=== PATIENT | female | born 1995 | race Caucasian/White ===

== ENCOUNTER → 2017-08-24 09:45 | Outpatient (CLI) | payer OTHER, SELFPAY ==
[2017-08-24 10:32] LABS: Hematocrit 32.8 % (37-47); Hemoglobin 10.8 g/dl (12.0-15.0); Mean Corp Hgb Conc 32.9 g/gl (32-36); Mean Corpuscular Hgb 31.7 pg (27.0-32.0); Mean Corpuscular Volume 96.2 fL (81-99); Mean Platelet Vol. 9.5 fl (6.2-12.0); Platelet Count 390 K/mm3 (150-450); RBC Distribution Width CV 12.5 % (11.6-14.6); RBC Distribution Width SD 42.4 fl (35.1-43.9); Red Blood Count 3.41 M/mm3 (4.2-5.4); White Blood Count 9.2 K/mm3 (4.4-11.0)
[2017-08-24 10:33] LABS: Scan Indicated on CBC? Y/N NO
[2017-08-24 10:49] LABS: Glucose Challenge Gest 1H 50g 82 mg/dL (70-140); T4 Free Direct 0.93 ng/dL (0.76-1.46); Thyroid Stim Hormone (TSH) 0.64 uIU/mL (0.358-3.74)
[2017-08-25 13:49] LABS: Ferritin 6 ng/mL (8-252)
== END ==
PROVIDERS: Visit Provider Obstetrics & Gynecology
DX: Z34.83 Encounter for supervision of other normal pregnancy, third trimester (principal); D64.9 Anemia, unspecified
CPT/HCPCS: 82728; 82950; 84439; 84443; 84481; 85027; 86850

== ENCOUNTER → 2017-10-20 13:45 | Outpatient (CLI) | payer OTHER, SELFPAY ==
[2017-10-20 17:57] LABS: Group B Strep DNA By PCR Negative (Negative); Internal Control PASS; Probe Check PASS; Specimen Processing Control PASS
== END ==
PROVIDERS: Visit Provider Obstetrics & Gynecology
DX: Z36.85 Encounter for antenatal screening for Streptococcus B (principal)
CPT/HCPCS: 87081; 87653

== ENCOUNTER → 2017-11-02 11:22 | Outpatient (CLI) | payer OTHER, SELFPAY ==
--- NOTE | 2017-11-02 11:22 | DT_ITS ---
This patient was seen during an EMR downtime October 26, 2017 - November 02, 2017. This patient may have a combination of paper and electronic documentation or all paper documentation. All documentation is viewable within the e-chart portion of [employer] for each patient visit.
[2017-11-02 11:48] LABS: ROM Internal Control Test YES-OK TO RESULT pt. (Internal QC)
[2017-11-02 11:50] LABS: ROM Patient Test Negative (Negative)
== END ==
PROVIDERS: Visit Provider Obstetrics & Gynecology
DX: Z34.83 Encounter for supervision of other normal pregnancy, third trimester (principal)
CPT/HCPCS: 84112

== ENCOUNTER 2017-11-05 01:10 | Inpatient (IN) | payer OTHER, SELFPAY ==
[2017-11-04 22:11] VITALS: BMI 29.5
[2017-11-05] MEDS: Lactated Ringers 1,000 ML 50 ML IV ×2 (01:28→07:45)
[2017-11-05 02:00] LABS: Hematocrit 31.5 % (37-47); Hemoglobin 10.1 g/dl (12.0-15.0); Mean Corp Hgb Conc 32.1 g/gl (32-36); Mean Corpuscular Hgb 28.1 pg (27.0-32.0); Mean Corpuscular Volume 87.7 fL (81-99); Mean Platelet Vol. 9.7 fl (6.2-12.0); Platelet Count 401 K/mm3 (150-450); RBC Distribution Width CV 13.2 % (11.6-14.6); RBC Distribution Width SD 42.6 fl (35.1-43.9); Red Blood Count 3.59 M/mm3 (4.2-5.4); Scan Indicated on CBC? Y/N NO; White Blood Count 15.7 K/mm3 (4.4-11.0)
[2017-11-05] MEDS: fentaNYL-bupivacaine (epidural) 100 ML BAG EPIDURAL (07:23)
--- NOTE | 2017-11-05 07:34 | PCM.PN.OB ---
Subjective: Just had epidural placed. Now more comfortable. Objective: Afeb VSS CAT 1 FHR tracing. Contractions q 5-6 minutes. - Physical Exam General: Alert, Oriented x3, Cooperative, No apparent distress Abdomen: Soft, Non Tender, Non-Distended, Gravid Skin: No rashes Neurological: Neuro grossly intact Psych/Mental Status: Normal Affect Comment: CE /-2 Weight: 194 lb 0.108 oz Body Mass Index (BMI) 29.5 Laboratory Tests Past 24 Hrs 11/05/17 11/05/17 11/05/17 01:28 01:28 01:28 WBC 15.7 H RBC 3.59 L Hgb 10.1 L Hct 31.5 L MCV 87.7 MCH 28.1 MCHC 32.1 RDW 13.2 RDW Differential 42.6 Plt Count 401 MPV 9.7 Blood Type A NEGATIVE Antibody Screen TNP NEGATIVE Medical Necessity - Tobacco Use Smoking Status: Never smoker Assessment/Plan Progressing in active labor with reassuring FHR pattern. AROM performed. eXPECT TO BE PUSHING SOON.
[2017-11-05] MEDS: Oxytocin 30 units/NS 500 ml 30 UNITS/500 ML IV.SOLN IV (09:42)
--- NOTE | 2017-11-05 10:38 | PCM.PN.BLA ---
Progress Note LABOR PROGRESS NOTE Renetta is without complaints and comfortable with the epidural. AVSS GEN - NAD, AAO x 3 SVE 8/90/-1 at approximately 0910h per RN exam TOCO 3/10 min, MVU 90 FHR 130, moderate variability, + accelerations, no decelerations A/P: 22 yo G1 @ 38 3/7wga in active labor with Cat I FHR, meconium stained fluid -Pitocin started following last exam for augmentation. Discussed with patient and at bedside indications for pitocin, reviewed role of IUPC and potential for FHR decelerations that may require change in management. -Will increase pitocin to 4mu/min -Continue in labor -Maternal and statuses reassuring
[2017-11-05] MEDS: Oxytocin 30 units/NS 500 ml 30 UNITS/500 ML IV.SOLN 334 UNITS IV (12:14)
[2017-11-05] MEDS: Oxytocin 30 units/NS 500 ml 30 UNITS/500 ML IV.SOLN 167 UNITS IV (12:45)
[2017-11-05] MEDS: 0.9% Saline Lock 10 ML Syringe IV (15:00)
--- NOTE | 2017-11-05 20:13 | OP.PCM_ITS ---
- Problem List (1) 38 weeks gestation of Status: Acute (2) (spontaneous vaginal delivery) Status: Acute Vaginal Delivery Maternal Presentation: Active Labor Method of Induction: - - pitocin augmentation Rupture of Membrane time: 72011/05/17 Amniotic Fluid Description: Lightly stained meconium Final JEFF: 11/16/17 Final JEFF Source: US <20 weeks Gestational age: 38 Weeks and 3 Days Date of Procedure: 11/05/17 Pre-Operative Diagnosis: 38 3/7wga, labor Post-Operative Diagnosis: 39 3/7wga, labor Surgery/ Procedure Performed: Spontaneous Vaginal Delivery Anesthesiologist: García Pereyra Type of Anesthesia: Epidural Description of Procedure: Patient was FD/+4 on my arrival and pushed to delivery a vigorous female . The infant was placed on the maternal abdomen and further attended by nursery personnel. The cord was doubly clamped and cut. Cord blood specimen was obtained. The placenta delivered spontaneously and appeared intact on inspection. A complex second degree perineal laceration with bilateral sulcal and left labial extension was repaired using 3-0 Vicryl Rapide. A right labial laceration was also present, but was shallow hemostatic thus not repaired. The tissue was extremely friable and each additional suture placement appeared to induce further bleeding, however, there was no hemorrhage. Once the anatomy was reapproximated I gently placed a slightly moistened packing Kerlex into the vagina. On placement of the packing however the right labial laceration began to bleed and it did not respond to suturing with 3-0 Vicryl, thus two Allis clamps were placed with hemostasis attained. Sponge counts were correct x 2 Will plan to remove Allis clamps later today and the vaginal packing tomorrow. Presentation: Vertex Placental Delivery Description: Spontaneous Placenta Disposition: [facility] Cord Vessel Description: 3 Vessels Nuchal Cord Compression: Without compression Cord Gases drawn per routine: ABG, VBG Cord Entanglement: None Drain: [place] to straight drain Estimated Blood Loss: 500 A gender: Female (1 minute): 8 (5 minute): 9 Episiotomy Description: None Laceration: Midline, Left Mediolateral, Right Mediolateral, Perineal Extension/ lac, Vaginal Extension/lac, 2nd degree Medications given after delivery: IV Pitocin Complications: None
[2017-11-05 23:08] VITALS: BP 119/56; PULSE 95; RESP 16; TEMP 36.8
[2017-11-06 00:46] VITALS: BP 110/65; PULSE 91; RESP 18; TEMP 36.6
[2017-11-06 04:29] VITALS: BP 106/55; PULSE 86; RESP 18; TEMP 36.4
[2017-11-06 06:37] LABS: Hematocrit 25.7 % (37-47); Hemoglobin 8.2 g/dl (12.0-15.0); Mean Corp Hgb Conc 31.9 g/gl (32-36); Mean Corpuscular Hgb 28.7 pg (27.0-32.0); Mean Corpuscular Volume 89.9 fL (81-99); Mean Platelet Vol. 9.5 fl (6.2-12.0); Platelet Count 353 K/mm3 (150-450); RBC Distribution Width CV 13.1 % (11.6-14.6); RBC Distribution Width SD 40.7 fl (35.1-43.9); Red Blood Count 2.86 M/mm3 (4.2-5.4)
[2017-11-06 06:39] LABS: Scan Indicated on CBC? Y/N NO
[2017-11-06 08:10] VITALS: BP 111/65; PULSE 96; RESP 16; TEMP 36.2
--- NOTE | 2017-11-06 09:15 | PCM.PN.OB ---
Patient Problems: Active and Suspected Problems 38 weeks gestation of (Acute) (spontaneous vaginal delivery) (Acute) Subjective: She is sore this morning, but out of bed and voids without difficulty. Infant latching well. Denies heavy lochia. Objective: avss - Physical Exam General: Alert, Oriented x3, Cooperative HEENT: Atraumatic, PERRLA, EOMI, Normocephalic Lungs: Normal air movement Cardiovascular: Regular rate, Regular Rhythm, Normal S1, Normal S2 Abdomen: Soft, Non Tender, Non-Distended, - - Fundus firm and nontender, vaginal packing removed, mild vulvar edema present Extremities: No edema, No Calf Tenderness Neurological: Neuro grossly intact Psych/Mental Status: Alert and oriented to time, place, person, mood and affect Vital Signs Temp Pulse Resp BP 98.4 F 98 16 108/56 L 11/06/17 10:59 11/06/17 10:59 11/06/17 10:59 11/06/17 10:59 Oxygen Delivery Method Room Air Weight: 88 kg Body Mass Index (BMI) 29.5 Intake and Output for Last 24 Hours 11/04/17 11/05/17 11/06/17 23:59 23:59 23:59 Intake Total 1747 / 1747 Output Total 2300 / 2300 Balance -553 / -553 Laboratory Tests Past 24 Hrs 11/05/17 11/06/17 16:00 06:15 WBC 17.0 H RBC 2.86 L Hgb 8.2 L Hct 25.7 L MCV 89.9 MCH 28.7 MCHC 31.9 L RDW 13.1 RDW Differential 40.7 Plt Count 353 MPV 9.5 Screen NEGATIVE Baby's Blood Type A POSITIVE Baby's SAROJ NEGATIVE Medical Necessity - Tobacco Use Smoking Status: Never smoker Assessment/Plan All Active Problems 38 weeks gestation of (Acute) (spontaneous vaginal delivery) (Acute) 22yo PPD#1 s/p doing well. - -Vaginal packing removed -H/H appropriate and c/w blood loss. Si/sx anemia reviewed. Plan for Fe supplementation at discharge -A neg, Rh positive - for Rhogam -Routine care
[2017-11-06] MEDS: Acetaminophen 500 MG Tablet 1000 MG PO (09:21)
--- NOTE | 2017-11-06 09:22 | NURSING ---
Packing removed this am by [email or web address]. no active bleeding at this time.
[2017-11-06 10:59] VITALS: BP 108/56; PULSE 98; RESP 16; TEMP 36.9
[2017-11-06 14:00] VITALS: BP 131/82; PULSE 111; RESP 16; TEMP 36.8; O2SAT 97
--- NOTE | 2017-11-06 14:11 | DCINST_ITS ---
Discharge Diet: No Restrictions Discharge Activity: Return to Normal Activity, May Shower, May Take a Tub Bath May resume sexual activity in: 6 weeks Lifting Restrictions: 20 lb Call your doctor if your incision/area has: Continuous Slow Oozing, Sudden Increased Bleeding, Increased Pain/ Swelling, Increased Redness, Foul Smelling Discharge Call your doctor if you observe: Fever of 101 or Higher, Inability to have a bowel movement, Using more than one pad per hour, Shortness of breath, Chest pain, Calf discomfort, Uncontrolled pain Suture Line Care: Avoid Pulling/Pushing Cleanse incision/area with: Soap & Water Additional Instructions: If you experience any of the following, contact your healthcare provider. * Bleeding that soaks a pad every hour for 2 hours * Fever 100.4 or higher * Unrelieved incision or abdominal pain * Swelling, redness, discharge or bleeding from your incision or episiotomy site * Your incision begins to separate * Problems urinating (including inability to urinate or burning while urinating) . * Visual changes * Severe headache * Flu-like symptoms * Pain or redness in one of both of your breasts * Pain, warmth, tenderness or swelling in your legs, especially the calf area * Frequent nausea and vomiting * Symptoms of depression or anxiety If you experience any of the following, call 911 or go to the nearest Emergency Room. * Chest pain * Problems breathing * Seizure activity * Partial or complete paralysis of a body part, slurred speech, weakness or drooping of the face, or a sudden inability to walk or hold your balance Allergies/Adverse Reactions: Allergies No Known Allergies Allergy (Verified 11/04/17 22:12) Medications to take at Discharge Vits [Prenatabs FA ] 1 tablet PO DAILY 11/04/17 Docusate Sodium [Colace] 100 mg PO BID PRN PRN #60 cap 11/06/17 Ferrous Sulfate 325 mg PO BIDCM #60 tab 11/06/17 Ibuprofen 600 mg PO TID PRN #30 tab 11/06/17 The following prescriptions were given: Docusate Sodium [Colace] 100 mg PO BID PRN PRN #60 cap PRN Reason: Constipation Ferrous Sulfate 325 mg PO BIDCM #60 tab Ibuprofen 600 mg PO TID PRN #30 tab PRN Reason: Pain Please Follow Up With: Tabitha Romero MD When: Call the office to schedule an appointment for 6 weeks
[2017-11-06 22:08] VITALS: BP 114/71; PULSE 96; RESP 16; TEMP 36.8; O2SAT 96
[2017-11-07 02:00] VITALS: BP 116/59; PULSE 90; RESP 16; TEMP 36.9; O2SAT 97
--- NOTE | 2017-11-07 07:58 | PCM.PN.OB ---
Patient Problems: Active and Suspected Problems 38 weeks gestation of (Acute) (spontaneous vaginal delivery) (Acute) Subjective: PPD#2 vaginal delivery. Doing well, no concerns voiced. - Physical Exam General: Oriented x3, Cooperative, No apparent distress HEENT: Atraumatic Neck: Supple Abdomen: Soft - Fundus firm NT at umbilicus. Peripad with mod lochia rubra Neurological: Cranial nerves II-XII grossly intact Psych/Mental Status: Normal Affect Vital Signs Temp Pulse Resp BP Pulse Ox 98.5 F 90 16 116/59 L 97 11/07/17 02:00 11/07/17 02:00 11/07/17 02:00 11/07/17 02:00 11/07/17 02:00 Oxygen Delivery Method Room Air Weight: 88 kg Body Mass Index (BMI) 29.5 Intake and Output for Last 24 Hours 11/05/17 11/06/17 11/07/17 23:59 23:59 23:59 Intake Total 1747 / 1747 Output Total 2300 / 2300 Balance -553 / -553 Medical Necessity - Tobacco Use Smoking Status: Never smoker Assessment/Plan All Active Problems 38 weeks gestation of (Acute) (spontaneous vaginal delivery) (Acute) PPD#2 Vaginal delivery. Dischg home today. RTO in 6 wk for pp check, prn sooner.
[2017-11-07 08:00] VITALS: BP 116/58; PULSE 86; RESP 16; TEMP 36.6; O2SAT 95
== END 2017-11-07 12:05 | disposition home or self-care (01) | DRG 775 ==
LOC: WPOUT 01:23
PROVIDERS: Obstetrics & Gynecology; Admitting Provider Obstetrics & Gynecology; Visit Provider Obstetrics & Gynecology
DX: O77.0 Labor and delivery complicated by meconium in amniotic fluid (principal); O70.1 Second degree perineal laceration during delivery; Z37.0 Single live birth; Z3A.38 38 weeks gestation of pregnancy
CPT/HCPCS: 59025; 59050; 85027; 85461; 86850; 86900; 90384; 99218; J7120; A4216; G0378; J2790

== ENCOUNTER → 2018-10-28 | Outpatient (CLI) | payer OTHER, SELFPAY ==
[2017-11-04 22:11] VITALS: BMI 29.5
[2018-11-02 13:26] LABS: HPV Reflexed? NOT INDICATED
== END | disposition home or self-care (01) ==
LOC: WOBLAB 14:41 → LABSPEC 14:41
PROVIDERS: Visit Provider Obstetrics & Gynecology
DX: Z12.4 Encounter for screening for malignant neoplasm of cervix (principal)
CPT/HCPCS: 88175; G0145

== ENCOUNTER → 2019-12-23 | Outpatient (CLI) | payer SELFPAY ==
[2017-11-04 22:11] VITALS: BMI 29.5
[2019-12-23 13:39] LABS: Color, Urine Yellow (Yellow); Glucose, Dipstick Normal (Normal); Ketone-Dipstick Negative (Negative); Leukocyte Esterase-Dipstick Negative /ul (Negative); Nitrite-Dipstick Negative (Negative); Occult Blood-Urine Negative /ul (Negative); Protein-Dipstick Negative (Negative); Urine Bilirubin Dipstick Negative (Negative); Urine Clarity Clear (Clear); Urine Urobilinogen Normal (Normal); Urine pH 6.5 (5.0 - 8.0)
[2019-12-23 13:40] LABS: Absolute Lymphocyte Count 2.13 X10^3/uL (0.83-4.51); Absolute Neutrophil Count 6.6 X10^3/uL (2.0-7.7); Basophil# 0.03 X10^3/uL; Basophil% 0.3 % (0-1); Eosinophil# 0.07 X10^3/uL; Eosinophils% 0.7 % (0-5); Hematocrit 41.8 % (37-47); Hemoglobin 13.5 g/dL (12.0-15.0); Lymphocyte # 2.13 X10^3/ul (4.0); Lymphocyte % 22.4 % (19-41); Mean Corp Hgb Conc 32.3 g/dL (32-36); Mean Corpuscular Hgb 30.5 pg (27.0-32.0); Mean Corpuscular Volume 94.4 fL (81-99); Mean Platelet Vol. 9.5 fl (6.2-12.0); Monocyte# 0.73 X10^3/uL; Monocyte% 7.7 % (0-10); NRBC Flagged by Analyzer 0 % (0-5); Neutrophil # 6.56 X10^3/uL (2.7-7.7); Neutrophil % 68.8 % (47-70); Platelet Count 365 K/mm3 (150-450); RBC Distribution Width SD 41.7 fl (35.1-43.9); Red Blood Count 4.43 M/mm3 (4.2-5.4); White Blood Count 9.5 K/mm3 (4.4-11.0)
[2019-12-23 14:00] LABS: Amphetamine Urine VISTA NEGATIVE (<1000 ng/mL); Barbiturate Urine VISTA NEGATIVE (< 200 ng/mL); Benzodiazepine Urine VISTA NEGATIVE (< 200 ng/mL); Cocaine Urine VISTA NEGATIVE (< 300 ng/mL); Ecstacy Urine VISTA NEGATIVE (< 500 ng/mL); Methadone Urine VISTA NEGATIVE (< 300 ng/mL); PCP Urine VISTA NEGATIVE (< 25 ng/mL); THC Urine VISTA NEGATIVE (< 50 ng/mL); Vista UDS pH Range 6
[2019-12-23 14:02] LABS: Thyroid Stim Hormone (TSH) 0.65 uIU/mL (0.358-3.74)
[2019-12-23 14:33] LABS: HIV - WCH Non-Reactive (Nonreactive); Hepatitis B Surface Antigen Non-Reactive (Nonreactive); Hepatitis C Antibody Non-Reactive (Nonreactive); Rubella IgG 87.6 IU/mL
[2019-12-23 19:36] LABS: Chlamydia Trachomatis by PCR Negative (Negative); Neisserai gonorrhoeae by PCR Negative (Negative); Probe Check PASS; Sample Adequacy Control PASS; Specimen Processing Control PASS
[2019-12-29 02:04] LABS: Prenatal RPR NONREACTIVE (NONREACTIVE)
== END | disposition home or self-care (01) ==
LOC: LABSPEC 13:23
PROVIDERS: Visit Provider Obstetrics & Gynecology
DX: Z34.81 Encounter for supervision of other normal pregnancy, first trimester (principal); Z11.3 Encounter for screening for infections with a predominantly sexual mode of transmission
CPT/HCPCS: 80307; 81002; 84443; 85025; 86703; 86762; 86803; 87340; 87491; 87591

== ENCOUNTER → 2020-05-22 09:07 | Outpatient (CLI) | payer SELFPAY ==
[2017-11-04 22:11] VITALS: BMI 29.5
[2020-05-22 10:42] LABS: Hematocrit 36.4 % (37-47); Hemoglobin 11.7 g/dL (12.0-15.0); Mean Corp Hgb Conc 32.1 g/dL (32-36); Mean Corpuscular Hgb 31.5 pg (27.0-32.0); Mean Corpuscular Volume 98.1 fL (81-99); Mean Platelet Vol. 9.8 fl (6.2-12.0); Platelet Count 337 K/mm3 (150-450); RBC Distribution Width SD 46.2 fl (35.1-43.9); Red Blood Count 3.71 M/mm3 (4.2-5.4); White Blood Count 9.7 K/mm3 (4.4-11.0)
[2020-05-22 10:46] LABS: Glucose Challenge Gest 1H 50g 101 mg/dL (70-140)
== END ==
PROVIDERS: Visit Provider Obstetrics & Gynecology
DX: Z34.83 Encounter for supervision of other normal pregnancy, third trimester (principal)
CPT/HCPCS: 36415; 82950; 85027; 86850

== ENCOUNTER → 2020-07-16 | Outpatient (CLI) | payer SELFPAY ==
[2017-11-04 22:11] VITALS: BMI 29.5
== END | disposition home or self-care (01) ==
LOC: LABSPEC 15:52
PROVIDERS: Visit Provider Obstetrics & Gynecology
DX: Z36.85 Encounter for antenatal screening for Streptococcus B (principal)
CPT/HCPCS: 87077; 87081; 87186

== ENCOUNTER 2020-08-03 07:00 | Inpatient (IN) | payer SELFPAY ==
[2017-11-04 22:11] VITALS: BMI 29.5
[2020-08-03] VITALS (52 sets, daily range): BP systolic 103–146; BP diastolic 56–86; PULSE 73–119; RESP 16; TEMP 36.3–37.4; O2SAT 94–99; BMI 30.7
[2020-08-03 07:49] LABS: Absolute Neutrophil Count 9.1 X10^3/uL (2.0-7.7); Basophil# 0.02 X10^3/uL; Basophil% 0.2 % (0-1); Eosinophils% 0.8 % (0-5); Hematocrit 34.6 % (37-47); Hemoglobin 11.8 g/dL (12.0-15.0); Lymphocyte % 17.1 % (19-41); Mean Corp Hgb Conc 34.1 g/dL (32-36); Mean Corpuscular Hgb 32.2 pg (27.0-32.0); Mean Corpuscular Volume 94.3 fL (81-99); Mean Platelet Vol. 9.8 fl (6.2-12.0); Monocyte# 0.87 X10^3/uL; Monocyte% 7.1 % (0-10); NRBC Flagged by Analyzer 0 % (0-5); Neutrophil # 9.13 X10^3/uL (2.7-7.7); Neutrophil % 74.3 % (47-70); Platelet Count 347 K/mm3 (150-450); RBC Distribution Width CV 12.7 % (11.6-14.6); RBC Distribution Width SD 43.9 fl (35.1-43.9); Red Blood Count 3.67 M/mm3 (4.2-5.4); White Blood Count 12.3 K/mm3 (4.4-11.0)
[2020-08-03] MEDS: Lactated Ringers 1,000 ML 50 ML IV (07:58)
[2020-08-03] MEDS: Oxytocin 30 units/NS 500 ml 30 UNITS/500 ML IV.SOLN IV (08:17)
--- NOTE | 2020-08-03 09:06 | HP.PCM_ITS ---
History and Physical Date of Admission: 08/03/20 OG ANTEPARTUM RECORD - HISTORY AND PHYSICAL (08/03/2020) Name: SHANNA CHESTER History of this : This is a 24 year old [id number] presents at 39 wks + 0 days gestation for induction. OB Physician: Maximiliano Givens MD 's Physician: Gretchen Zamarripa ...................................................................... : 1995 Age: 24 Address: [address] [place] [address] [address] [place] [address] Phone: (h) [phone] (O) [phone] Insurance Carrier: Emergency Contact: ELSIE SALEH [phone] ...................................................................... Final JEFF: 08/10/20 By Ultrasound: 12 weeks 4 days PARITY: (G-Total Pregnancies P-Fullterm,Premature,Induced AB,Spont AB, Ectopics, Multiple,Living) JEFF CONFIRMATION: By LMP: 11/04/19 Initial Exam: 08/10/20 By First Ultrasound Exam: 08/12/20 Final JEFF: 08/10/20 OB PROBLEM LIST: A NEG Declines carrier and Quad screen EPDS on 12/23/2019 = 0 SEX UNKNOWN ALLERGIES: No Known Allergies MEDICATIONS: aspirin 81 mg chewable tablet 1 PO QD 28 mg iron-800 mcg tablet 1 PO QD Vitamin D3 50 mcg (2,000 unit) capsule 1 PO QD SOCIAL HISTORY: Smoking - Never Alcohol Use - socially not while Diet - balanced Diet, caffeine < 2 drinks per day and water intake- 54 oz daily Lifestyle - Exercise - active 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 Illicit Drug Use - denies use of street drugs Sexual Activity - single sexual partner Residence - lives with Place of - [place], [place] Spouse-Sig Other Name - Xavier Chester Spouse-Sig Other Occupation - ice cream truck driver Spouse-Sig Other Phone No - [phone] Children Name(s) - Cassidy ('18) PRIOR DELIVERY HISTORY DEL DATE GEST LAB WT LB WT OZ TYPE ANES LABOR TX 14 Nov 09 38 14 8 1 Vag Epidural No ANTEPARTUM FLOW CHART VISIT GE RTC FU F F FL U U DATE WK MD WKS HT PN HR M SS BP ED WT FL GL D EF ST __ ____ ___ __ __ ___ __ __ __ ___ __ __ __ ___ __ 11 Jul 38 JMW 6 37 V + + 114/72 sl 198 - - 3 75 -2 03 Jul 37 JMW 1 37 V + + 130/82 sl 196 - - S 22 Feb 36 JMW 1 36 V + + 116/72 0 198 tr - 2 50 -2 09 Feb 34 SHM 1 34 V + + 110/62 0 194 tr - May SHM 2 33 V + + 116/66 0 193 tr - Jun 24 SHM 4 31 V + + 110/66 o 194 tr - May 21 SHM 2 29 ? + + 110/66 0 188 tr - 01 May 17 SHM 4 24 + + 120/66 0 185 - - 03 Apr 13 SHM 4 20 B + + 110/80 0 174 tr - 06 Mar 09 SHM 4 16 + ? 96/70 0 169 tr - 08 Feb 03 SHM 4 + US 110/74 0 161 tr - ANTEPARTUM NOTE(S): Aug 02 2020: Good FM and Induce per Request Jul 25 2020: Cramping, Witten Chau,Good FM Jul 16 2020: GBS and LARC Jul 03 2020: none Jun 22 2020: doing well Jun 08 2020: May 22 2020: 28 week labs, Rhogam Apr 24 2020: Mar 27 2020: feeling well. AM Feb 28 2020: feeling well. Jan 31 2020: feeling well. COMPREHENSIVE ANTEPARTUM NOTE(S): Jul 18 2020: H taken to OB. tkg Jul 16 2020: Shanna is here for a PNV. Good FM. No edema present. Denies any concerns/ issues. Occasional Miko Chau. Mucus discharge present. GBS today, consent signed. LARC reviewed and declined. MK Jul 03 2020: Few musculoskeletal discomforts. Pt notes theses are tolerable. No complaints. Reviewed GBS swab for next visit. Jun 22 2020: Has names for baby of each sex. Discussed COVID19 related L policies including visitation, request for maternal testing on admission and maternal masking policy. PTL, ROM, FM precautions. Jun 08 2020: Shanna is here for 31 wk PNV. Good FM. No edema. Medications and allergies reviewed. No concerns expressed at this time. LJW Jun 08 2020: Preeclampsia precautions reviewed. Has mild edema in LE at end of day, none today. Reviewed 1h GTT wnl and CBC wnl May 22 2020: Shanna is here for a PNV. Good FM. No edema. No concerns expressed at this time. 28 week labs drawn today. Rhogam to be given after as pt is A-. MK May 22 2020: Discussed PPBC, plans OCP. PTL, ROM, FM precautions. Apr 24 2020: Shanna is being seen for PNV, she is 24+4. Expressed + FM. No edema. She started taking Vit D 2000mg QD and aspirin 81 mg QD. Glucola given today to have drawn at next visit. No complaints or concerns expressed today. LJW Apr 24 2020: Previous labor 14-16h. She is considering no epidural this time. Reviewed average second labor is faster. Good movement. Discussed sleep positioning for third trimester . No questions or concerns today. Mar 27 2020: Anatomy scan reviewed, AGA, EFW 24th%, anterior placenta. SEX UNKNOWN, will wait until delivery. Occasional round ligament pain. Good FM. Feb 28 2020: Discussed movement, round ligement pain and musculoskeletal discomforts of . Anatomy scan next visit. Plans to wait to find out sex. Feb 01 2020: TELEHEALTH NOB VISIT, 25 TOTAL MINUTES. Shanna is a 24 year old with an JEFF of 08/10/2020, and current GA is 12 w 5 d. She states that she feels well, and has not experienced any N/V. She resides with her , Xavier, and their 2 year old daughter, Cassidy. Past history updated. Delivery at [facility] is planned, with a likely epidural, and she will breastfeed. Office practice patte Jan 31 2020: No complaints. Energy doing ok. Denies constipation. labs reviewed and wnl. A NEG. Discussed Rhogam indications. ?if is B NEG. Encouraged to bring copy of his [place] card - as Rhogam may not be indicated. Anatomy scan at 20wga REVIEW OF SYSTEMS: GENERAL - Denies fever, or chills SKIN - Denies rash, new skin lesions, or change in moles EYES - Denies blurred vision, or change in visual acuity EARS - Denies ear pain, or difficulty hearing NOSE - Denies nasal congestion, discharge, or bleeding MOUTH - Denies sore throat, or difficulty swallowing NECK - Denies pain or swelling RESPIRATORY - Denies shortness of breath, cough, wheezing CARDIOVASCULAR - Denies palpitations, chest pain, orthopnea, PND, peripheral edema, syncope or claudication GASTROINTESTINAL - Denies nausea, vomiting, diarrhea, constipation, Denies abdominal pain, melena and or bright red blood GENITOURINARY - Denies dysuria, frequency of urination, urgency, or hesitancy MUSCULOSKELETAL - Denies joint or muscle pain, or back pain NEUROLOGICAL - Denies localized numbness, weakness, or tingling PSYCHIATRIC - Denies depression, anxiety, substance abuse or suicide attempts ENDOCRINE - Denies heat or cold intolerance, weight loss or gain, increasing thirst HEMATO-IMMUNOLOGIC - Denies easy bruising, bleeding, oral ulcerations or recurrent infections GENETICS SCREENING: Age 35+ years: No Thalassemia: No Neural Tube Defect: No Down Syndrome: No KO-SACHS: No Sickle Cell Disease: No Hemophilia: No Musc. Dystrophy: No Cystic Fibrosis: No-declines screening [place]royo Chorea: No Mental Retardation: No Fragile X: No Other genetic: No Other defects: No SABs/still births: No Drugs since LMP: No INFECTION HISTORY: High risk AIDS: No High risk Hepatitis: No Exposed to TB: No Exposed to Herpes: No Rash/viral illness since LMP: No History of STD: No MENSTRUAL HISTORY: *Menses Amount/Duration: 3 daysMenses Regularity: RegularFrequency: monthlyMenarche (Age Onset): 12* PAST SUMMARY: PARITY: 1. Total Pregnancies............ 2 2. Full Term Pregnancies........ 1 3. Premature.................... 0 4. Abortions - Induced.......... 0 5. Abortions - Spontaneous...... 0 6. Ectopics..................... 0 7. Multiple Births.............. 0 8. Living Children.............. 1 PAST #1: Date of :.................. 11/05/17 Gestation Weeks:................ 38 Length of labor(hours):......... 14 Sex:............................ F Weight-lbs:............... 8 Weight-oz:................ 1 Type of Delivery:............... Vag Type of Anesthesia:............. Epidural Place of Delivery:.............. [facility] Treatment of Labor?:.... No Comment: PHYSICAL EXAMINATION General Appearence: 24 yo female in no acute distress Vital Signs: AF, VSS Heart: RRR without rubs or gallops Lungs: CTA x 2 Breasts: deferred Abdomen: gravid Pelvis: Cervix: 3/75 Presentation: cephalic Station: -2 Fetus: Size: AGA Movement: present Heart: present LAB TEST(S) ORDERED SINCE:11/14/19 05/22/2020 GLUCOSE CHALLENGE GEST 1H 50G 05/22/2020 CBC-COMPLETE BLOOD CNT NO DIFF 05/22/2020 ANTIBODY SCREEN 12/29/2019 RPR 12/23/2019 URINE DRUG SCREEN (VISTA) 12/23/2019 URINALYSIS, ROUTINE (DIPSTICK) 12/23/2019 THYROID STIM HORMONE (TSH) 12/23/2019 RUBELLA IGG 12/23/2019 T AND S-NO CHARGE W/PNP 12/23/2019 HIV - [facility] 12/23/2019 HEPATITIS C ANTIBODY 12/23/2019 HEPATITIS B SURFACE ANTIGEN 12/23/2019 CT/NG [facility] BY PCR 12/23/2019 CBC W/DIFF, AUTOMATED 08/03/2020 CBC W/DIFF, AUTOMATED 07/20/2020 CULTURE, GROUP B STREPTOCOCCUS 07/18/2020 RULE OUT BETA STREP (GRP. B) == ==== Order Observation Description Value Ref_Range A* Site == ==== CBC W/DIFF, AUT NOTE MONET CBC W/DIFF, AUT WBC 12.3 K/mm3 4.4-11.0 H ML CBC W/DIFF, AUT RBC 3.67 M/mm3 4.2-5.4 L ML CBC W/DIFF, AUT HGB 11.8 g/dL 12.0-15.0 L ML CBC W/DIFF, AUT HCT 34.6 37-47 L ML CBC W/DIFF, AUT MCV 94.3 fL 81-99 ML CBC W/DIFF, AUT MCH 32.2 pg 27.0-32.0 H ML CBC W/DIFF, AUT MCHC 34.1 g/dL 32-36 ML CBC W/DIFF, AUT RDW CV 12.7 11.6-14.6 ML CBC W/DIFF, AUT RDW SD 43.9 fl 35.1-43.9 ML CBC W/DIFF, AUT PLT 347 K/mm3 150-450 ML CBC W/DIFF, AUT MPV 9.8 fl 6.2-12.0 ML CBC W/DIFF, AUT NEUT% 74.3 47-70 H ML CBC W/DIFF, AUT LY% 17.1 19-41 L ML CBC W/DIFF, AUT MONO% 7.1 0-10 ML CBC W/DIFF, AUT EO% 0.8 0-5 ML CBC W/DIFF, AUT BASO% 0.2 0-1 ML CBC W/DIFF, AUT IG% 0.500 0.0-0.9 ML IG% - Immature Granulocytes (promyelocytes, myelocytes and metamyelocytes) > 1% indicates that a LEFT SHIFT is Present. CBC W/DIFF, AUT ABSOLUTE NEUT 9.1 X10 3/uL 2.0-7.7 H ML CBC W/DIFF, AUT ABSOLUTE LYMPH 2.10 X10 3/uL 0.83-4.51 ML CBC W/DIFF, AUT NUCLEATED RBC 0 0-5 ML CULTURE, GROUP NOTE MONET RULE OUT BETA S NOTE MONET [facility]~[address] [place], [phone] ANTIBODY SCREEN ANTIBODY SCREEN NEGATIVE N ML GLUCOSE CHALLEN NOTE MONET GLUCOSE CHALLEN GLU GEST 50G 1H 101 mg/dL 70-140 ML CBC-COMPLETE BL NOTE MONET CBC-COMPLETE BL WBC 9.7 K/mm3 4.4-11.0 ML CBC-COMPLETE BL RBC 3.71 M/mm3 4.2-5.4 L ML CBC-COMPLETE BL HGB 11.7 g/dL 12.0-15.0 L ML CBC-COMPLETE BL HCT 36.4 % 37-47 L ML CBC-COMPLETE BL MCV 98.1 fL 81-99 ML CBC-COMPLETE BL MCH 31.5 pg 27.0-32.0 ML CBC-COMPLETE BL MCHC 32.1 g/dL 32-36 ML CBC-COMPLETE BL RDW CV 13.0 % 11.6-14.6 ML CBC-COMPLETE BL RDW SD 46.2 fl 35.1-43.9 H ML CBC-COMPLETE BL PLT 337 K/mm3 150-450 ML CBC-COMPLETE BL MPV 9.8 fl 6.2-12.0 ML RPR NOTE MONET RPR RPR NONREACTIVE NONREACTIVE ML CT/NG [facility] BY PC NOTE MONET CT/NG [facility] BY PC CHLAM TRAC PCR Negative Negative ML CT/NG [facility] BY PC NG BY PCR Negative Negative ML Reason for Type AND Screen/Red Cells: Surgery? N [facility]~[address] [place], [address]~ T AND BLOOD TYPE GEL A NEGATIVE N ML T AND AB SCREEN GEL NEGATIVE N ML HEPATITIS C ANT NOTE MONET HEPATITIS C ANT HEPATITIS C AB Non-Reactive Nonreactive ML Non Reactive: < 0.8 Equivocal: >/= 0.8 to < 1.0 Reactive: >/= 1.0 The CDC recommends that a reactive/equivocal HCV antibody result be followed up by the HCV Nucleic Acid Amplification test ([id number]) HEPATITIS B RAMU NOTE MONET HEPATITIS B RAMU HEPB SURFACE AG Non-Reactive Nonreactive ML HIV - [facility] NOTE MONET HIV - [facility] HIV - [facility] Non-Reactive Nonreactive ML RUBELLA IGG NOTE MONET RUBELLA IGG RUBELLA IGG 87.6 IU/mL ML Antibody results Interpretation of Immune Status < 5 IU/ml Presumed Non-immune 5 - < 10 IU/ml Equivocal > or = 10 IU/ml Presumed Immune THYROID STIM HO NOTE MONET THYROID STIM HO TSH 0.65 uIU/mL 0.358-3.74 ML URINE DRUG SCRE NOTE MONET URINE DRUG SCRE TO BE CONFIRMED ML CONFIRMATORY TESTING FOR ALL POSITIVE URINE DRUG SCREEN RESULTS WILL ONLY BE SENT OUT UPON PHYSICIAN ORDER. VISTA Urine Drug Screen methods provide only preliminary analytical test results. A more specific alternate chemical method must be used in order to obtain a confirmed analytical result. Gas chromatography/mass spectrometery (GC/MS) is the preferred confirmatory method. Clinical consideration and professional judgement should be applied to any drug of abuse test result, particularly when preliminary positive results are used. URINE TCA TESTING MUST BE ORDERED SEPARATELY. USE TEST MNEMONIC: UTCA URINE DRUG SCRE VISTA UDS PH 6 ML URINE DRUG SCRE AMPHETAMINES NEGATIVE <1000 ng/mL ML URINE DRUG SCRE BARBITIURATES NEGATIVE < 200 ng/mL ML URINE DRUG SCRE BENZODIAZIPINE NEGATIVE < 200 ng/mL ML URINE DRUG SCRE COCAINE NEGATIVE < 300 ng/mL ML URINE DRUG SCRE ECSTACY NEGATIVE < 500 ng/mL ML URINE DRUG SCRE METHADONE NEGATIVE < 300 ng/mL ML URINE DRUG SCRE OPIATES NEGATIVE < 300 ng/mL ML URINE DRUG SCRE PCP NEGATIVE < 25 ng/mL ML URINE DRUG SCRE THC NEGATIVE < 50 ng/mL ML CBC W/DIFF, AUT NOTE MONET CBC W/DIFF, AUT WBC 9.5 K/mm3 4.4-11.0 ML CBC W/DIFF, AUT RBC 4.43 M/mm3 4.2-5.4 ML CBC W/DIFF, AUT HGB 13.5 g/dL 12.0-15.0 ML CBC W/DIFF, AUT HCT 41.8 % 37-47 ML CBC W/DIFF, AUT MCV 94.4 fL 81-99 ML CBC W/DIFF, AUT MCH 30.5 pg 27.0-32.0 ML CBC W/DIFF, AUT MCHC 32.3 g/dL 32-36 ML CBC W/DIFF, AUT RDW CV 12.0 % 11.6-14.6 ML CBC W/DIFF, AUT RDW SD 41.7 fl 35.1-43.9 ML CBC W/DIFF, AUT PLT 365 K/mm3 150-450 ML CBC W/DIFF, AUT MPV 9.5 fl 6.2-12.0 ML CBC W/DIFF, AUT NEUT% 68.8 % 47-70 ML CBC W/DIFF, AUT LY% 22.4 % 19-41 ML CBC W/DIFF, AUT MONO% 7.7 % 0-10 ML CBC W/DIFF, AUT EO% 0.7 % 0-5 ML CBC W/DIFF, AUT BASO% 0.3 % 0-1 ML CBC W/DIFF, AUT IM GRAN % 0.100 % 0.0-0.9 ML IG% - Immature Granulocytes (promyelocytes, myelocytes and metamyelocytes) > 1% indicates that a LEFT SHIFT is Present. CBC W/DIFF, AUT ABSOLUTE NEUT 6.6 X10 3/uL 2.0-7.7 ML CBC W/DIFF, AUT ABSOLUTE LYMPH 2.13 X10 3/uL 0.83-4.51 ML CBC W/DIFF, AUT NRBC, FLAGGED 0 % 0-5 ML URINALYSIS, ROU NOTE MONET URINALYSIS, ROU COLOR Yellow Yellow ML URINALYSIS, ROU CLARITY Clear Clear ML URINALYSIS, ROU GLUCOSE, UR Normal mg/dl Normal ML URINALYSIS, ROU BILIRUBIN URINE Negative mg/dL Negative ML URINALYSIS, ROU KETONE UR Negative mg/dl Negative ML URINALYSIS, ROU SP.GR. DIPSTX 1.010 1.002-1.030 ML URINALYSIS, ROU PH UR 6.5 5.0 - 8.0 ML URINALYSIS, ROU PROT DIPSTX Negative mg/dl Negative ML URINALYSIS, ROU UROBILI Normal mg/dl Normal ML URINALYSIS, ROU NITRITE UR Negative Negative ML URINALYSIS, ROU OCCULT BLOOD-UR Negative /ul Negative ML URINALYSIS, ROU LEUK ESTERASE Negative /ul Negative ML JIAN Culture ORGANISM 1: Streptococcus agalactiae (B) Amount Growth Growth Streptococcus agalactiae (B): REACTION Ampicillin $ <=0.25 S Benzylpenicillin NF 0.12 S Ceftriaxone $ <=0.12 S Clindamycin $$ <=0.25 S Inducable Clindamycin [place]istan NEG Linezolid $$$$ <=2 S Vancomycin $ 0.5 S Reference Range: S= Susceptible, I= Intermediate, R= Resistant MICS are expressed in micrograms per mL (NF) indicates non-formulary drug at [facility]. Approval by Infectious Disease Specialist required before non-formulary drugs may be ordered and/or dispensed. Testing performed on [employer] 2 instrument Sensitivity to follow. Streptococcus agalactiae (B) Amount Growth Growth == ==== Impression /Plan: 39 wks + 0 days intrauterine . Preparations in progress for delivery.
[2020-08-03] MEDS: Lactated Ringers 500 ML 999 ML IV ×2 (12:23→14:24)
[2020-08-03] MEDS: fentaNYL-bupivacaine (epidural) 100 ML BAG EPIDURAL (13:19)
[2020-08-03] MEDS: Oxytocin 30 units/NS 500 ml 30 UNITS/500 ML IV.SOLN 334 UNITS IV (15:05)
--- NOTE | 2020-08-03 15:18 | OP.PCM_ITS ---
Vaginal Delivery Maternal Presentation: Elective Induction Method of Induction: Amniotomy Amniotic Membrane Rupture Type: Artificial Amniotic Fluid Description: Clear Final JEFF: 08/10/20 Final JEFF Source: US <20 weeks Gestational age: 39 Weeks and 0 Days Date of Procedure: 08/03/20 Pre-Operative Diagnosis: IUP Post-Operative Diagnosis: IUP Surgery/ Procedure Performed: Spontaneous Vaginal Delivery Type of Anesthesia: Epidural Description of Procedure: Spontaneous vaginal delivery of a viable female infant with Apgars of 8/9 from an occiput anterior presentation with clear amniotic fluid and normal three- vessel placenta. Cord around the neck x1 tight. First-degree midline episiotomy extended to a second-degree midline laceration repaired with 3-0 Rapide suture under epidural. Sponges okay. Delivery physician: Maximiliano Givens MD. Presentation: Vertex Placental Delivery Description: Spontaneous Placenta Disposition: [facility] Cord Vessel Description: 3 Vessels Cord Entanglement: Around neck x 1, tight Estimated Blood Loss: 250 cc Infant A gender: Female (1 minute): 8 (5 minute): 9 Episiotomy Description: Midline, 1st degree Laceration: Midline, 2nd degree Medications given after delivery: IV Pitocin Complications: None
--- NOTE | 2020-08-03 15:21 | DCINST_ITS ---
<Maximiliano Givens - Last Filed: 08/03/20 15:21> Discharge Diet: No Restrictions Discharge Activity: May Shower, May Take a Tub Bath May resume sexual activity in: 4-6 weeks Additional Activity Instructions:: Nothing in the vagina for 4-6 weeks. You may return to work/school in 6 weeks. Call your doctor if you observe: Inability to urinate, Inability to have a bowel movement, Using more than one pad per hour Additional Instructions: If you experience any of the following, contact your healthcare provider. * Bleeding that soaks a pad every hour for 2 hours * Fever 100.4 or higher * Unrelieved incision or abdominal pain * Swelling, redness, discharge or bleeding from your incision or episiotomy site * Your incision begins to separate * Problems urinating (including inability to urinate or burning while urinating). * Visual changes * Severe headache * Flu-like symptoms * Pain or redness in one of both of your breasts * Pain, warmth, tenderness or swelling in your legs, especially the calf area * Frequent nausea and vomiting * Symptoms of depression or anxiety If you experience any of the following, call 911 or go to the nearest Emergency Room. * Chest pain * Problems breathing * Seizure activity * Partial or complete paralysis of a body part, slurred speech, weakness or drooping of the face, or a sudden inability to walk or hold your balance Allergies/Adverse Reactions: Allergies No Known Allergies Allergy (Verified 11/04/17 22:12) Medications to take at Discharge Vits [Prenatabs FA ] 1 tablet PO DAILY 11/04/17 Please Follow Up With: Maximiliano Givens MD - [phone] When: Call to make an appointment with your doctor in 6 weeks. Test Results: Test results from this visit will be discussed in further detail at your follow- up appointment, if applicable. <Marivel Dyer - Last Filed: 08/04/20 04:42> Additional Instructions: If you experience any of the following, contact your healthcare provider. * Bleeding that soaks a pad every hour for 2 hours * Fever 100.4 or higher * Unrelieved incision or abdominal pain * Swelling, redness, discharge or bleeding from your incision or episiotomy site * Your incision begins to separate * Problems urinating (including inability to urinate or burning while urinating). * Visual changes * Severe headache * Flu-like symptoms * Pain or redness in one of both of your breasts * Pain, warmth, tenderness or swelling in your legs, especially the calf area * Frequent nausea and vomiting * Symptoms of depression or anxiety If you experience any of the following, call 911 or go to the nearest Emergency Room. * Chest pain * Problems breathing * Seizure activity * Partial or complete paralysis of a body part, slurred speech, weakness or drooping of the face, or a sudden inability to walk or hold your balance Test Results: Test results from this visit will be discussed in further detail at your follow- up appointment, if applicable.
--- NOTE | 2020-08-03 15:21 | PCM.DCVAG ---
<Maximiliano Givens - Last Filed: 08/03/20 15:21> Discharge Diet: No Restrictions Discharge Activity: May Shower, May Take a Tub Bath May resume sexual activity in: 4-6 weeks Additional Activity Instructions:: Nothing in the vagina for 4-6 weeks. You may return to work/school in 6 weeks. Call your doctor if you observe: Inability to urinate, Inability to have a bowel movement, Using more than one pad per hour Additional Instructions: If you experience any of the following, contact your healthcare provider. Bleeding that soaks a pad every hour for 2 hours Fever 100.4 or higher Unrelieved incision or abdominal pain Swelling, redness, discharge or bleeding from your incision or episiotomy site Your incision begins to separate Problems urinating (including inability to urinate or burning while urinating). Visual changes Severe headache Flu-like symptoms Pain or redness in one of both of your breasts Pain, warmth, tenderness or swelling in your legs, especially the calf area Frequent nausea and vomiting Symptoms of depression or anxiety If you experience any of the following, call 911 or go to the nearest Emergency Room. Chest pain Problems breathing Seizure activity Partial or complete paralysis of a body part, slurred speech, weakness or drooping of the face, or a sudden inability to walk or hold your balance Allergies/Adverse Reactions: Allergies No Known Allergies Allergy (Verified 11/04/17 22:12) Medications to take at Discharge Vits [Prenatabs FA ] 1 tablet PO DAILY 11/04/17 Please Follow Up With: Maximiliano Givens MD - [phone] When: Call to make an appointment with your doctor in 6 weeks. Test Results: Test results from this visit will be discussed in further detail at your follow-up appointment, if applicable. <Marivel Dyre - Last Filed: 08/04/20 04:42> Additional Instructions: If you experience any of the following, contact your healthcare provider. Bleeding that soaks a pad every hour for 2 hours Fever 100.4 or higher Unrelieved incision or abdominal pain Swelling, redness, discharge or bleeding from your incision or episiotomy site Your incision begins to separate Problems urinating (including inability to urinate or burning while urinating). Visual changes Severe headache Flu-like symptoms Pain or redness in one of both of your breasts Pain, warmth, tenderness or swelling in your legs, especially the calf area Frequent nausea and vomiting Symptoms of depression or anxiety If you experience any of the following, call 911 or go to the nearest Emergency Room. Chest pain Problems breathing Seizure activity Partial or complete paralysis of a body part, slurred speech, weakness or drooping of the face, or a sudden inability to walk or hold your balance Test Results: Test results from this visit will be discussed in further detail at your follow-up appointment, if applicable.
[2020-08-04] VITALS (7 sets, daily range): BP systolic 113–118; BP diastolic 58–71; PULSE 76–92; RESP 16; TEMP 36.5–36.8
--- NOTE | 2020-08-04 04:41 | PCM.PN.OB ---
Subjective: PPD1. Lochia minimal. . - Physical Exam Vitals/I&O's: Vital Signs Temp Pulse Resp BP Pulse Ox 98.2 F 76 16 113/71 97 08/04/20 03:04 08/04/20 03:04 08/04/20 03:04 08/04/20 03:04 08/03/20 17:02 Weight: 89.176 kg Body Mass Index (BMI) 30.7 Intake and Output for Last 24 Hours 08/02/20 08/03/20 08/04/20 23:59 23:59 23:59 Intake Total 2347.57 / 2347.57 Output Total 200 / 200 Balance 2147.57 / 2147.57 General: Alert, Oriented x3, No apparent distress HEENT: Atraumatic, Normocephalic Neck: Supple Lungs: Normal air movement Cardiovascular: Regular rate Abdomen: Soft - uterus 2 cm below umbilicus Extremities: No edema Neurological: Cranial nerves II-XII grossly intact, Deep Tendon Reflexes 2+/4 and Symmetrical Psych/Mental Status: Normal Affect, Appropriate Microbiology Past 72 Hours 08/03/20 08:00 Mucosa - Nasopharyngeal SARS-CoV-2 Antigen (Rapid) - Final Laboratory Results 08/03/20 07:30: WBC 12.3 H, RBC 3.67 L, Hgb 11.8 L, Hct 34.6 L, MCV 94.3, MCH 32.2 H, MCHC 34.1, RDW Std Deviation 43.9, RDW Coeff of Shreyas 12.7, Plt Count 347, MPV 9.8, Immature Gran % (Auto) 0.500, Neut % (Auto) 74.3 H, Lymph % (Auto) 17.1 L, [place] % (Auto) 7.1, Eos % (Auto) 0.8, Baso % (Auto) 0.2, Absolute Neuts (auto) 9.1 H, Absolute Lymphs (auto) 2.10, Nucleated RBC % 0 08/03/20 07:30: Blood Type A NEGATIVE, Antibody Screen TNP 08/03/20 07:30: Antibody Screen NEGATIVE Current Medications Acetaminophen (Acetaminophen 500 Mg Tablet) 1,000 mg PO Q8H PRN PRN PRN Reason: Pain Score 1-3 Bisacodyl (Bisacodyl 10 Mg Suppository) 10 mg RC UD PRN PRN Reason: If no BM Dibucaine (Dibucaine 30 Gm Tube) 1 applic TOPICAL TID PRN PRN; Protocol PRN Reason: Discomfort Hydrocortisone (Hydrocortisone 2.5% Crm) 1 applic TOPICAL TID PRN PRN; Protocol PRN Reason: Discomfort Ibuprofen (Ibuprofen 600 Mg Tablet) 600 mg PO Q6H PRN PRN PRN Reason: Pain Score 1-3 Methylergonovine Maleate (Methylergonovine 0.2 Mg/Ml Ampul) 0.2 mg IM X1 PRN PRN Reason: Excess bleeding/uterine atony Ondansetron HCl (Ondansetron 4 Mg/2 Ml Vial) 4 mg IV Q4H PRN PRN PRN Reason: Nausea Oxycodone HCl (Oxycodone 5 Mg Tablet) 5 - 10 mg PO Q4H PRN PRN PRN Reason: Pain Score 4-10 Senna/Docusate Sodium (Senna/Docusate Sodium 1 Tablet) 1 - 2 tablet PO DAILY PRN PRN PRN Reason: Constipation Simethicone (Simethicone 80 Mg Tablet) 80 mg PO PCHS PRN PRN Reason: Indigestion/Stomach pain Sodium Chloride (0.9% Saline Lock 10 Ml Syringe) 5 - 15 ml IV UD PRN PRN Reason: SALINE FLUSH Zolpidem Tartrate (Zolpidem Tartrate 5 Mg Tablet) 5 mg PO QHS PRN PRN PRN Reason: Insomnia Medical Necessity - Tobacco Use Smoking Status: Never smoker Assessment/Plan All Active Problems 38 weeks gestation of (Acute) (spontaneous vaginal delivery) (Acute) PPD1 s/p . . Home today.
== END 2020-08-04 17:40 | disposition home or self-care (01) | DRG 807 ==
PROVIDERS: Admitting Provider Obstetrics & Gynecology; Visit Provider Obstetrics & Gynecology
DX: O69.1XX0 Labor and delivery complicated by cord around neck, with compression, not applicable or unspecified (principal); Z37.0 Single live birth; O70.1 Second degree perineal laceration during delivery; Z3A.39 39 weeks gestation of pregnancy
CPT/HCPCS: 59025; 59050; 85025; 86850; 86900; 86901; 87426; 99218; J7120; G0378

== ENCOUNTER → 2020-09-26 | Outpatient (CLI) | payer SELFPAY ==
[2020-08-03 07:28] VITALS: BMI 30.7
[2020-10-03 13:13] LABS: HPV Reflexed? NOT INDICATED
== END | disposition home or self-care (01) ==
LOC: LABSPEC 14:01
PROVIDERS: Visit Provider Obstetrics & Gynecology
DX: Z12.4 Encounter for screening for malignant neoplasm of cervix (principal)
CPT/HCPCS: 88175; G0145

== ENCOUNTER → 2023-01-01 | Outpatient (CLI) | payer OTHER, SELFPAY ==
[2023-01-05 06:06] LABS: Chlamydia By Nucleic Acid AMP Negative (Negative); Gonococcus By Nucleic Acid AMP Negative (Negative)
== END | disposition home or self-care (01) ==
PROVIDERS: Referring Provider Obstetrics & Gynecology; Visit Provider Obstetrics & Gynecology
DX: Z34.90 Encounter for supervision of normal pregnancy, unspecified, unspecified trimester (principal)
CPT/HCPCS: 87086; 87088; 87491; 87591

== ENCOUNTER → 2023-01-29 | Outpatient (CLI) | payer SELFPAY ==
[2023-01-29 11:50] LABS: Absolute Lymphocyte Count 2.61 X10^3/uL (0.83-4.51); Basophil# 0.03 X10^3/uL; Basophil% 0.3 % (0-1); Eosinophil# 0.33 X10^3/uL; Eosinophils% 2.8 % (0-5); Hematocrit 39.1 % (37-47); Lymphocyte # 2.61 X10^3/ul (0.83-4.51); Lymphocyte % 22.1 % (19-41); Mean Corp Hgb Conc 33.2 g/dL (32-36); Mean Corpuscular Volume 93.1 fL (81-99); Mean Platelet Vol. 8.9 fl (6.2-12.0); Monocyte# 0.76 X10^3/uL; Monocyte% 6.4 % (0-10); NRBC Flagged by Analyzer 0 % (0-5); Neutrophil # 8.04 X10^3/uL (2.7-7.7); Neutrophil % 68.1 % (47-70); Platelet Count 360 K/mm3 (150-450); RBC Distribution Width CV 12.7 % (11.6-14.6); RBC Distribution Width SD 43.8 fl (35.1-43.9); White Blood Count 11.8 K/mm3 (4.4-11.0)
[2023-01-29 12:58] LABS: HIV - WCH Non-Reactive (Nonreactive); Hepatitis B Surface Antigen Non-Reactive (Nonreactive); Hepatitis C Antibody Non-Reactive (Nonreactive); Rubella IgG Reactive (Nonreactive); Syphilis Antibodies Non-reactive
== END | disposition home or self-care (01) ==
LOC: PAVLAB 11:34
PROVIDERS: Referring Provider Obstetrics & Gynecology; Visit Provider Obstetrics & Gynecology
DX: Z34.90 Encounter for supervision of normal pregnancy, unspecified, unspecified trimester (principal)
CPT/HCPCS: 36415; 85025; 86703; 86762; 86780; 86803; 86850; 86900; 86901; 87340

== ENCOUNTER → 2023-03-27 | Outpatient (CLI) | payer SELFPAY ==
--- NOTE | 2023-03-27 13:18 | US_ITS ---
INDICATION: Anatomy. EXAMINATION: Ultrasound US OB Greater Than 14 Weeks TECHNIQUE: Transabdominal pelvic ultrasound was performed. COMPARISON: No relevant prior comparison study available LMP: 11/12/2022 Beta-hCG: Unknown. Provided EGA: None. FINDINGS: INTRAUTERINE GESTATION(s): Single. HEART MOTION is 143 bpm. BIOMETRIC MEASUREMENTS: HEAD CIRCUMFERENCE: 16.9 cm which corresponds to 19 weeks and 3 days. BIPARIETAL DIAMETER: 4.5 cm which corresponds to 19 weeks and 3 days. ABDOMINAL CIRCUMFERENCE: 14.3 cm which corresponds to 19 weeks and 5 days. FEMORAL LENGTH: 3.1 cm which corresponds to 19 weeks and 4 days. ESTIMATED DUE DATE (JEFF): 08/18/2023 ESTIMATED WEIGHT: 303 g +/- 45 g. PRESENTATION: Breech AMNIOTIC FLUID INDEX (RICHA): Appears to be within normal limits but not measured BIOPHYSICAL PROFILE (BPP): Not assessed. PLACENTA: Anterior. There is no placenta previa or abruption. 5.7 cm from the internal os. CERVIX: Cervix is closed measuring about 3.6 cm in length. MATERNAL OVARIES: Not seen. FREE FLUID: None. ANATOMY: LATERAL VENTRICLES: Visualized CHOROID PLEXUS: Visualized. MIDLINE FALX: Visualized. CAVUM SEPTUM PELLUCIDI: Visualized. CEREBELLUM: Visualized, 2 cm. CISTERNA MAGNA: Visualized, 6 mm. UPPER LIP: Appears to be intact. FOUR CHAMBER HEART VIEW: Unremarkable. LEFT VENTRICULAR OUTFLOW TRACT: Visualized. RIGHT VENTRICULAR OUTFLOW TRACT: Visualized. STOMACH: Visualized. KIDNEYS: Visualized, no hydronephrosis. URINARY BLADDER: Visualized. UMBILICAL CORD INSERTION into the abdomen: Unremarkable. UMBILICAL CORD vessel number: Normal three vessel cord. SPINE: Unremarkable. No posterior spinal defect observed. UPPER AND LOWER EXTREMITIES: Present. GENDER: Male. IMPRESSION: Single live intrauterine with an estimated gestational age of 19 weeks and 3 days. The JEFF is 08/18/2023. Electronically Signed: Paulo Guardado MD at 15:18 EDT , INDICATION: Anatomy. EXAMINATION: Ultrasound US OB Greater Than 14 Weeks TECHNIQUE: Transabdominal pelvic ultrasound was performed. COMPARISON: No relevant prior comparison study available LMP: 11/12/2022 Beta-hCG: Unknown. Provided EGA: None. FINDINGS: INTRAUTERINE GESTATION(s): Single. HEART MOTION is 143 bpm. BIOMETRIC MEASUREMENTS: HEAD CIRCUMFERENCE: 16.9 cm which corresponds to 19 weeks and 3 days. BIPARIETAL DIAMETER: 4.5 cm which corresponds to 19 weeks and 3 days. ABDOMINAL CIRCUMFERENCE: 14.3 cm which corresponds to 19 weeks and 5 days. FEMORAL LENGTH: 3.1 cm which corresponds to 19 weeks and 4 days. ESTIMATED DUE DATE (JEFF): 08/18/2023 ESTIMATED WEIGHT: 303 g +/- 45 g. PRESENTATION: Breech AMNIOTIC FLUID INDEX (RICHA): Appears to be within normal limits but not measured BIOPHYSICAL PROFILE (BPP): Not assessed. PLACENTA: Anterior. There is no placenta previa or abruption. 5.7 cm from the internal os. CERVIX: Cervix is closed measuring about 3.6 cm in length. MATERNAL OVARIES: Not seen. FREE FLUID: None. ANATOMY: LATERAL VENTRICLES: Visualized CHOROID PLEXUS: Visualized. MIDLINE FALX: Visualized. CAVUM SEPTUM PELLUCIDI: Visualized. CEREBELLUM: Visualized, 2 cm. CISTERNA MAGNA: Visualized, 6 mm. UPPER LIP: Appears to be intact. FOUR CHAMBER HEART VIEW: Unremarkable. LEFT VENTRICULAR OUTFLOW TRACT: Visualized. RIGHT VENTRICULAR OUTFLOW TRACT: Visualized. STOMACH: Visualized. KIDNEYS: Visualized, no hydronephrosis. URINARY BLADDER: Visualized. UMBILICAL CORD INSERTION into the abdomen: Unremarkable. UMBILICAL CORD vessel number: Normal three vessel cord. SPINE: Unremarkable. No posterior spinal defect observed. UPPER AND LOWER EXTREMITIES: Present. GENDER: Male. US/OB Anatomy w/ Transvaginal
== END | disposition home or self-care (01) ==
PROVIDERS: Referring Provider Advanced Practice Midwife; Visit Provider Advanced Practice Midwife
DX: O09.90 Supervision of high risk pregnancy, unspecified, unspecified trimester (principal); Z3A.00 Weeks of gestation of pregnancy not specified
CPT/HCPCS: 76805; 76817

== ENCOUNTER → 2023-05-29 | Outpatient (CLI) | payer SELFPAY ==
[2023-05-29 14:05] LABS: Absolute Lymphocyte Count 1.94 X10^3/uL (0.83-4.51); Absolute Neutrophil Count 8.6 X10^3/uL (2.0-7.7); Basophil# 0.03 X10^3/uL; Basophil% 0.3 % (0-1); Eosinophil# 0.17 X10^3/uL; Eosinophils% 1.5 % (0-5); Hematocrit 31.9 % (37-47); Hemoglobin 10.7 g/dL (12.0-15.0); Lymphocyte # 1.94 X10^3/ul (0.83-4.51); Lymphocyte % 16.6 % (19-41); Mean Corp Hgb Conc 33.5 g/dL (32-36); Mean Corpuscular Hgb 31.1 pg (27.0-32.0); Mean Corpuscular Volume 92.7 fL (81-99); Mean Platelet Vol. 9.2 fl (6.2-12.0); Monocyte# 0.93 X10^3/uL; NRBC Flagged by Analyzer 0 % (0-5); Neutrophil # 8.55 X10^3/uL (2.7-7.7); Neutrophil % 73.3 % (47-70); Platelet Count 383 K/mm3 (150-450); RBC Distribution Width CV 12.5 % (11.6-14.6); RBC Distribution Width SD 42.5 fl (35.1-43.9); Red Blood Count 3.44 M/mm3 (4.2-5.4); White Blood Count 11.7 K/mm3 (4.4-11.0)
[2023-05-29 14:55] LABS: Glucose Challenge Gest 1H 50g 111 mg/dL (70-140)
[2023-05-29 15:30] LABS: HIV - WCH Non-Reactive (Nonreactive); Syphilis Antibodies Non-reactive
== END | disposition home or self-care (01) ==
LOC: LAB 13:37
PROVIDERS: Referring Provider Registered Nurse; Visit Provider Registered Nurse
DX: O26.899 Other specified pregnancy related conditions, unspecified trimester (principal); Z67.91 Unspecified blood type, Rh negative; Z13.1 Encounter for screening for diabetes mellitus; Z3A.00 Weeks of gestation of pregnancy not specified
CPT/HCPCS: 36415; 82950; 85025; 86703; 86780; 86850; 86900; 86901

== ENCOUNTER → 2023-06-30 | Outpatient (CLI) | payer SELFPAY ==
[2023-06-30 10:08] LABS: Absolute Lymphocyte Count 1.74 X10^3/uL (0.83-4.51); Absolute Neutrophil Count 7.1 X10^3/uL (2.0-7.7); Basophil# 0.02 X10^3/uL; Basophil% 0.2 % (0-1); Eosinophil# 0.12 X10^3/uL; Eosinophils% 1.2 % (0-5); Hematocrit 33.5 % (37-47); Hemoglobin 10.7 g/dL (12.0-15.0); Lymphocyte # 1.74 X10^3/ul (0.83-4.51); Lymphocyte % 17.6 % (19-41); Mean Corp Hgb Conc 31.9 g/dL (32-36); Mean Corpuscular Hgb 30.3 pg (27.0-32.0); Mean Corpuscular Volume 94.9 fL (81-99); Mean Platelet Vol. 9.3 fl (6.2-12.0); Monocyte# 0.78 X10^3/uL; Monocyte% 7.9 % (0-10); NRBC Flagged by Analyzer 0 % (0-5); Neutrophil # 7.14 X10^3/uL (2.7-7.7); Neutrophil % 72.5 % (47-70); Platelet Count 347 K/mm3 (150-450); RBC Distribution Width CV 12.8 % (11.6-14.6); Red Blood Count 3.53 M/mm3 (4.2-5.4); White Blood Count 9.9 K/mm3 (4.4-11.0)
== END | disposition home or self-care (01) ==
PROVIDERS: Referring Provider Registered Nurse; Visit Provider Registered Nurse
DX: D64.9 Anemia, unspecified (principal)
CPT/HCPCS: 36415; 85025

== ENCOUNTER → 2023-07-22 | Outpatient (CLI) | payer SELFPAY | END | disposition home or self-care (01) | LOC: LABSPEC 15:28 | PROVIDERS: Referring Provider Obstetrics & Gynecology; Visit Provider Obstetrics & Gynecology | DX: O09.90 Supervision of high risk pregnancy, unspecified, unspecified trimester (principal); Z3A.00 Weeks of gestation of pregnancy not specified | CPT/HCPCS: 87081 ==

== ENCOUNTER 2023-08-24 17:01 | Inpatient (IN) | payer SELFPAY ==
[2023-08-24] VITALS (44 sets, daily range): BP systolic 112–146; BP diastolic 57–84; PULSE 83–121; RESP 16–18; TEMP 36.3–37; O2SAT 92–100; BMI 32.6
[2023-08-24] MEDS: LACTATED RINGERS 500 ML 999 ML IV (17:15)
[2023-08-24] MEDS: Lactated Ringers 1,000 ML 200 ML IV (17:15)
[2023-08-24 17:38] LABS: Absolute Lymphocyte Count 2.45 X10^3/uL (0.83-4.51); Absolute Neutrophil Count 14.2 X10^3/uL (2.0-7.7); Basophil# 0.03 X10^3/uL; Basophil% 0.2 % (0-1); Eosinophil# 0.06 X10^3/uL; Eosinophils% 0.3 % (0-5); Hematocrit 35.8 % (37-47); Hemoglobin 11.6 g/dL (12.0-15.0); Lymphocyte # 2.45 X10^3/ul (0.83-4.51); Lymphocyte % 13.1 % (19-41); Mean Corp Hgb Conc 32.4 g/dL (32-36); Mean Corpuscular Hgb 27.7 pg (27.0-32.0); Mean Corpuscular Volume 85.4 fL (81-99); Monocyte# 1.82 X10^3/uL; Monocyte% 9.8 % (0-10); NRBC Flagged by Analyzer 0 % (0-5); Neutrophil # 14.24 X10^3/uL (2.7-7.7); Neutrophil % 76.3 % (47-70); POSITIVE DIFFERENTIAL YES; Platelet Count 348 K/mm3 (150-450); RBC Distribution Width CV 13.6 % (11.6-14.6); RBC Distribution Width SD 42.4 fl (35.1-43.9); Red Blood Count 4.19 M/mm3 (4.2-5.4); White Blood Count 18.7 K/mm3 (4.4-11.0)
[2023-08-24 17:41] LABS: Differential Indicated SCAN CRITERIA MET
[2023-08-24] MEDS: fentaNYL-bupivacaine (epidural) 100 ML BAG EPIDURAL (17:51)
[2023-08-24 18:09] LABS: Syphilis Antibodies Non-reactive
[2023-08-24 18:28] LABS: Differential Comment SCANNED
[2023-08-24] MEDS: Oxytocin 15 Units/NS 250ml 15 UNITS/250 ML IV.SOLN 83 UNITS IV (18:50)
[2023-08-24] MEDS: Methylergonovine 0.2 MG/ML Ampul IM (18:52)
--- NOTE | 2023-08-24 19:31 | HP.PCM.OB_ITS ---
HPI - General General Date of Admission: 08/24/23 HPI Narrative SHANNA WHITEHEAD, is a 27 F who presents at 40.6 with strong contractions, declines dec fm, vb. desires epidural upon admission. gbs neg Maternal Data Information JEFF Calculator Estimated Delivery Date Method Current WG Current Estimate 08/19/23 Ultrasound #1 40w 5d Other Estimates 08/14/23 LMP (Certain) 41w 3d PFSH PFSH Medical History 38 weeks gestation of (spontaneous vaginal delivery) Home Medications vits,calcium no.78-iron fumarate-folic acid 29 mg-1 mg tablet (Prenatabs FA) 1 tab PO DAILY 11/04/17 [History Last Taken 08/03/20 06:00] Allergy/AdvReac Type Severity Reaction Status Date / Time No Known Allergies Allergy Verified 08/24/23 18:29 Family History Father Hypertension Mother Hypertension Social History adopted: No household members: spouse and children number of children: 2 current occupational status: unemployed current occupation: Homemaker current occupational exposures/hazards: No pets and animals: No history of recent travel: Yes (October) out of state: Yes out of country: No sexually active: Yes Smoking Status: Never smoker alcohol intake: current alcohol intake frequency: holidays/special occasions only details: Not while substance use type: does not use well-balanced diet: daily or most days caffeine: Yes Type: coffee Number of servings: 1 eating out: 1-3 times/week during the past year weight has: remained stable kiara/gnosticist: Religious seatbelt use: always do you feel safe at home: Yes 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 Date Name GA/Weeks Outcome Route Bth Weight Infant Gen Labor Lgth Anesthesia Del Locatn Provider FOB 11/05/17 Jossie 38 live - full term 8#1oz Female 16 Hrs epi dural [facility] Dr. [place] 08/03/20 Wrenly 39 live - full term 7#6oz Female 7 Hrs epid ural [facility] Dr.Weeman Park Visit Details Expected Delivery Route/Plan Labor Preferences- CB/BF classes: enc. labor support person: Xavier labor intervention preferences: [] pain management options preferred: [] cut cord/dad catch: [] : plans PP control planned: [] discussed possible routes of delivery and associated risks: [] special requests: [] Plans Covid status: declines Flu vaccine: declines Tdap vaccine: declines Rhogam: completed. LARC form signed: completed. Problem list reviewed and updated with the most current plan of care details and appropriate orders placed. Relevant counseling for the gestational age provided. Continue routine care and follow up unless otherwise noted in visit notes/problem list details OB Flowsheet Initial Weight: 164 lb Date -?-?-?-?-?-?-?-?-?-?-?-?- EGA Weight BP Urine Prot -?-?-?-?-?-?-?-?-?-?-?-?- Glucose FHR FuHt Pres Dilation -?-?-?-?-?-?-?-?-?-?-?-?- Effaced St Visit Note 01/01/23 -?-?-?-?-?-?-?-?-?-?-?-?- 7w 1d 164 lb 8 oz (+8 oz) 164 lb 8 oz (+8 oz) 124/78 -?-?-?-?-?-?-?-?-?-?-?-?- 170 -?-?-?-?-?-?-?-?-?-?-?-?- SM- CRL cons wit h LMP SM- CRL 1 cm NOT cons with L MP 01/29/23 -?-?-?-?-?-?-?-?-?-?-?-?- 11w 1d 168 lb 2 oz (+4 lb 2 oz) 120/84 Negative -?-?-?-?-?-?-?-?-?-?-?-?- Negative -?-?-?-?-?-?-?-?-?-?-?-?- KW-no vb/crampin g. no concerns today. FHR on bedside US today KW-no vb/cramping. no concer ns today. FHR on bedside US today. US ordered and AFP discussed-Declines at this time. 02/26/23 -?-?-?-?-?-?-?-?-?-?-?-?- 15w 1d 174 lb 2 oz (+10 lb 2 oz) 118/76 -?-?-?-?-?-?-?-?-?-?-?-?- 150 -?-?-?-?-?-?-?-?-?-?-?-?- LC- no vb/crampi ng. no concerns. has anatomy scheduled. 03/26/23 -?-?-?-?-?-?-?-?-?-?-?-?- 19w 1d 181 lb 4 oz (+17 lb 4 oz) 100/62 Negative -?-?-?-?-?-?-?-?-?-?-?-?- Negative 150 -?-?-?-?-?-?-?-?-?-?-?-?- kw- no vb/ctx. + flutters. US tomorrow. 04/23/23 -?-?-?-?-?-?-?-?-?-?-?-?- 23w 1d 187 lb 6 oz (+23 lb 6 oz) 103/70 Trace -?-?-?-?-?-?-?-?-?-?-?-?- Negative 148 23 -?-?-?-?-?-?-?-?-?-?-?-?- LC- no vb/ctx/lo f. +fm. normal anatomy. 28 week labs ordered. 05/29/23 -?-?-?-?-?-?-?-?-?-?-?-?- 28w 2d 199 lb (+35 lb) 126/78 Negative -?-?-?-?-?-?-?-?-?-?-?-?- Negative 145 28 -?-?-?-?-?-?-?-?-?-?-?-?- LC- no vb/ctx/lo f. good fm. hgb 10.7- start on iron repeat in 4 weeks. LC- no vb/ctx/lof. good fm. hgb 10.7- start on iron repeat in 4 weeks. larc signed. declines tdap. rhogam provided. 06/11/23 -?-?-?-?-?-?-?-?-?-?-?-?- 30w 1d 201 lb 8 oz (+37 lb 8 oz) 107/74 Trace -?-?-?-?-?-?-?-?-?-?-?-?- Negative 148 30 -?-?-?-?-?-?-?-?-?-?-?-?- LC- no vbc/ctx/l of. good fm. declines flu vaccine 06/25/23 -?-?-?-?-?-?-?--?-?-?-?-?- 32w 1d 206 lb 8 oz (+42 lb 8 oz) 117/77 Negative -?-?-?-?-?-?-?-?-?-?-?-?- Negative 156 32 -?-?-?-?-?-?-?-?-?-?-?-?- LC- no vb/ctx/lo f.good fm.will obtain repeat cbc. 07/08/23 -?-?-?-?-?-?-?-?-?-?-?-?- 34w 0d 206 lb (+42 lb) 119/74 Trace -?-?-?-?-?-?-?-?-?-?-?-?- Negative 148 34 -?-?-?-?-?-?-?-?-?-?-?-?- MH-No VB, LOF. G ood Fm. Denies concerns 07/22/23 -?-?-?-?-?-?-?-?-?-?-?-?- 36w 0d 209 lb (+45 lb) 126/80 Negative -?-?-?-?-?-?-?-?-?-?-?-?- Negative 153 36 Cephalic 1 -?-?-?-?-?-?-?-?-?-?-?-?- 30 -3 JV- gbs co llected no lof, vaginal bleeding, or dec fm. 07/29/23 -?-?-?-?-?-?-?-?-?-?-?-?- 37w 0d 211 lb 6 oz (+47 lb 6 oz) 124/63 Negative -?-?-?-?-?-?-?-?-?-?-?-?- Negative 156 38 Cephalic 0 -?-?-?-?-?-?-?-?-?-?-?-?- JV- better able to feel internal os today and it is closed. no lof, vaginal bleeding, or dec fm. 08/06/23 -?-?-?-?-?-?-?-?-?-?-?-?- 38w 1d 212 lb (+48 lb) 129/83 Negative -?-?-?-?-?-?-?-?-?-?-?-?- Negative 150 39 1.5 -?-?-?-?-?-?-?-?-?-?-?-?- 60 -2 SM- no vb lof good fm no regualr ctx 08/13/23 -?-?-?-?-?-?-?-?-?-?-?-?- 39w 1d 214 lb 8 oz (+50 lb 8 oz) 121/79 Negative -?-?-?-?-?-?-?-?-?-?-?-?- Negative 150 40 Cephalic 3 -?-?-?-?-?-?-?-?-?-?-?-?- 60 -2 kw- no vb/ lof/reg ctx. good fm. Labor precautions 08/19/23 -?-?-?-?-?-?-?-?-?-?-?-?- 40w 0d 215 lb 4 oz (+51 lb 4 oz) 118/81 Negative -?-?-?-?-?-?-?-?-?-?-?-?- Negative 150 41 Cephalic 4 -?-?-?-?-?-?-?-?-?-?-?-?- 60 -2 KW- no vb/ lof/ctx. good fm. IOL for 41 weeks. membrane sweep today. Vital Signs Vital Signs Vital Signs: 08/24/23 17:05 08/24/23 17:05 08/24/23 17:04 Temperature Temperature Source Temporal Pulse Rate 98 Respiratory Rate Blood Pressure 124/76 H BP Systolic 124 BP Diastolic 76 Pulse Ox 08/24/23 17:04 08/24/23 17:04 08/24/23 17:42 Temperature 98.6 F Temperature Source Pulse Rate Respiratory Rate 16 Blood Pressure 138/81 H BP Systolic 138 BP Diastolic 81 Pulse Ox 08/24/23 17:42 08/24/23 17:42 08/24/23 17:46 Temperature Temperature Source Pulse Rate 100 Respiratory Rate Blood Pressure 136/82 H BP Systolic 136 BP Diastolic 82 Pulse Ox 98 08/24/23 17:46 08/24/23 17:47 08/24/23 17:47 Temperature Temperature Source Pulse Rate 98 105 H Respiratory Rate Blood Pressure BP Systolic BP Diastolic Pulse Ox 92 08/24/23 17:52 08/24/23 17:52 08/24/23 17:53 Temperature Temperature Source Pulse Rate 98 Respiratory Rate Blood Pressure 129/79 H BP Systolic 129 BP Diastolic 79 Pulse Ox 97 08/24/23 17:53 08/24/23 17:55 08/24/23 17:55 Temperature Temperature Source Pulse Rate 95 93 Respiratory Rate Blood Pressure BP Systolic BP Diastolic Pulse Ox 92 08/24/23 17:57 08/24/23 17:57 08/24/23 17:57 Temperature Temperature Source Pulse Rate 103 H Respiratory Rate Blood Pressure 121/77 H BP Systolic 121 BP Diastolic 77 Pulse Ox 99 08/24/23 18:00 08/24/23 18:00 08/24/23 18:02 Temperature Temperature Source Pulse Rate 98 Respiratory Rate Blood Pressure 134/78 H BP Systolic 134 BP Diastolic 78 Pulse Ox 92 08/24/23 18:02 08/24/23 18:02 08/24/23 18:02 Temperature Temperature Source Pulse Rate 96 100 Respiratory Rate Blood Pressure BP Systolic BP Diastolic Pulse Ox 98 08/24/23 18:07 08/24/23 18:07 08/24/23 18:07 Temperature Temperature Source Pulse Rate 110 H Respiratory Rate Blood Pressure 136/64 H BP Systolic 136 BP Diastolic 64 Pulse Ox 96 08/24/23 18:11 08/24/23 18:12 08/24/23 18:11 Temperature Temperature Source Pulse Rate 110 H 104 H Respiratory Rate Blood Pressure 123/57 H BP Systolic 123 BP Diastolic 57 Pulse Ox 08/24/23 18:12 08/24/23 18:17 08/24/23 18:17 Temperature Temperature Source Pulse Rate 106 H Respiratory Rate Blood Pressure BP Systolic BP Diastolic Pulse Ox 96 100 08/24/23 18:18 08/24/23 18:18 08/24/23 18:23 Temperature Temperature Source Pulse Rate 112 H Respiratory Rate Blood Pressure 140/83 H 143/65 H BP Systolic 140 143 BP Diastolic 83 65 Pulse Ox 08/24/23 18:23 08/24/23 18:27 08/24/23 18:27 Temperature Temperature Source Pulse Rate 121 H 116 H Respiratory Rate Blood Pressure 127/69 H BP Systolic 127 BP Diastolic 69 Pulse Ox 08/24/23 19:07 08/24/23 19:07 08/24/23 19:17 Temperature Temperature Source Pulse Rate 94 Respiratory Rate Blood Pressure 122/71 H 116/69 BP Systolic 122 116 BP Diastolic 71 69 Pulse Ox 08/24/23 19:17 Temperature Temperature Source Pulse Rate 96 Respiratory Rate Blood Pressure BP Systolic BP Diastolic Pulse Ox Weight Weight: 215 lb Body Mass Index (BMI) 32.6 Physical Exam Const alert, oriented x3 and no apparent distress General Appearance: cooperative, comfortable and well kempt Orientation / Consciousness: awake and oriented to person Exam Limitations: no limitations HEENT normocephalic Neck full ROM Chest inspection of chest normal Resp normal respiratory effort, normal air movement and no retractions Effort and Inspection: able to speak in complete sentences and symmetric chest movement Cardio regular rate Peripheral Pulses: pulses 2+ throughout GI normal to inspection, nondistended, normoactive bowel sounds Inspection: gravid no CVA tenderness and appearance of the vagina normal External Female Exam: normal appearance of the urethra; Negative for external lesion OB / External & Speculum: external exam normal Manual OB Exam: estimated gestational size appropriate and presentation cephalic Uterus Palpation: Negative for uterus tender Extremity normal to inspection Skin no rashes or lesions noted Neuro deep tendon reflexes 2+ bilaterally and gait normal Motor Exam: strength 5/5 throughout and clonus absent Psych Activity / Motor Behavior: appropriate eye contact Speech: normal speech Labs Labs Labs: Blood Type A NEGATIVE Antibody Screen NEGATIVE Hct 35.8 % (37-47) L Hgb 11.6 g/dL (12.0-15.0) L Obstetrics Ultrasound Syphilis Total Ab Non-reactive Rubella IgG Antibody Reactive (Nonreactive) Hep Bs Antigen Non-Reactive (Nonreactive) Hepatitis C Antibody Non-Reactive (Nonreactive) Hepatitis C Ab (EIA) <0.1 s/co ratio (0.0-0.9) Chlamydia DNA (NORMA) Negative (Negative) N.gonorrhoeae DNA (NORMA) Negative (Negative) HIV 1&2 Antibody Non-Reactive (Nonreactive) Glucose 1 Hr 50 gm 111 mg/dL (70-140) Group B Strep DNA Negative (Negative) Rhogam given: No Assessment & Plan (1) Active labor at term: COMMENT: 40.6 active labor PLAN: Patient presents IAL, plan expectant management for , pitocin/AROM PRN if needed. Pain management: plans epidural. GBS neg. Management of any complications: none I have reviewed the [facility] and made any clinically relevant updates. Dr. Rossi updated on admission, exam and poc, agrees with primary midwifery management for low risk pt.
--- NOTE | 2023-08-24 19:35 | OP.PCM_ITS ---
Maternal Data Information JEFF Calculator Estimated Delivery Date Method Current WG Current Estimate 08/19/23 Ultrasound #1 40w 5d Other Estimates 08/14/23 LMP (Certain) 41w 3d Final JEFF Source: LMP Gestational age: 40.6 Vaginal Delivery Maternal Presentation Maternal Presentation: Active Labor Operative Information Date of Procedure: 08/24/23 Pre-Operative Diagnosis: see problem list Surgery / Procedure Performed: Spontaneous Vaginal Delivery Type of Anesthesia: Epidural Time of Delivery: 18:35 Findings Description of Procedure: Patient began pushing and delivered the head in the SALOMÓN presentation. The head was delivered atraumatically and a loose nuchal cord ?1 was identified and easily reduced over the infant's head. The anterior and posterior shoulders delivered without complication followed by the rest of the infant and the infant was placed on the maternal abdomen. Delayed cord clamping was employed for approximately 60 seconds. Cord was clamped and cut and gentle traction was applied to the cord and the placenta delivered spontaneously immediately following it was noted to be intact with three-vessel cord. The perineum and vagina were inspected and noted to have second degree laceration, repaired with 3-0 and 2-0 vicryl. EBL was 500cc, managed with Methergine . Patient and infant tolerated delivery well. Presentation: Vertex Amniotic Membrane Rupture Type: Spontaneous Time of Membrane Rupture: 1814 Amniotic Fluid Description: Clear Placental Delivery Description: Spontaneous Placenta Disposition: [facility] Cord Vessel Description: 3 Vessels Cord Entanglement: Around neck x 1, loose Infant A Gender: Male (1 minute): 8 (5 minute): 9 Delayed Cord Clamping: Yes Post Vaginal Delivery Medications Given After Delivery: IV Pitocin and IM Methergin Laceration: 2nd degree Complication Complications: None Procedures Urinary/Genital [id number]: [id number] Vaginal Delivery [facility]
[2023-08-24] MEDS: 0.9% Saline Lock 10 ML Syringe IV (21:01)
[2023-08-25 03:20] VITALS: BP 116/75; PULSE 102; RESP 16; O2SAT 96
[2023-08-25] MEDS: Acetaminophen 500 MG Tablet 1000 MG PO (03:24)
[2023-08-25] MEDS: Rho(D) Immune Globulin 300 MCG (1500 Unit) Syringe IV (06:24)
[2023-08-25] MEDS: 0.9% Saline Lock 10 ML Syringe IV (06:25)
--- NOTE | 2023-08-25 06:49 | DCINST_ITS ---
Discharge Instructions Diet Discharge Diet: No restrictions Activity Discharge Activity: May Not Drive and May Shower May resume sexual activity in: 6 weeks Weight Bearing Status: Full weight bearing Dressing / Incision Call your doctor if your incision/area has: Sudden Increased Bleeding, Increased Pain/ Swelling and Foul Smelling Discharge Call your doctor if you observe: Fever of 101 or Higher, Numbness or Tingling, Change in Color, Inability to urinate, Inability to have a bowel movement, Using more than 1 pad per hour, Shortness of breath, Dizziness, Fainting spells, Chest pain, Calf discomfort and Uncontrolled pain Follow Up Care Please Follow Up With: Carrie Lomax CNM When: 6 weeks , please call office to make an appointment. Congratulations on the of your baby! Test Results: Test results from this visit will be discussed in further detail at your follow- up appointment, if applicable. Discharge Plan Admission Admit Date/Time: 08/24/23 17:01 Attending Provider: Carrie Lomax Primary Care Provider: Care Physician,Mehreen Primary Discharge Orders/Prescriptions Prescriptions: No Action vit,[id number] [Prenatabs FA] 1 TABLET tablet 1 tab PO DAILY Referrals / Follow Up: Care Physician,No Primary [Primary Care Provider] -
--- NOTE | 2023-08-25 07:56 | PCM.PN.OB ---
Subjective Subjective Patient doing well without complaints. Tolerating PO. Ambulating and voiding without difficulty. Feeding well. Denies chest pain, shortness of breath, calf pain/swelling, fevers, chills, lightheadedness. Objective Data Objective Data Vital Signs: Vital Signs Temp Pulse Resp BP Pulse Ox O2 Del Method 98.6 F 102 H 16 116/75 96 Room Air 08/24/23 20:17 08/25/23 03:20 08/25/23 03:20 08/25/23 03:20 08/25/23 03:20 08/25/23 03:20 Oxygen Delivery Method Room Air Weight: 215 lb Body Mass Index (BMI) 32.6 Intake & Output: Intake and Output for Last 24 Hours 08/23/23 08/24/23 08/25/23 23:59 23:59 23:59 Intake Total 1066 / 1066 Output Total 1000 / 1700 700 / 700 Balance 66 / -634 -700 / -700 Lab / Micro Data Attestation: I reviewed the patient's lab results. 08/24/23 17:15 Labs: Laboratory Results - last 24 hr 08/24/23 17:15: WBC 18.7 H, RBC 4.19 L, Hgb 11.6 L, Hct 35.8 L, MCV 85.4, MCH 27.7, MCHC 32.4, RDW Std Deviation 42.4, RDW Coeff of Shreyas 13.6, Plt Count 348, MPV 10.0, Immature Gran % (Auto) 0.300, Neut % (Auto) 76.3 H, Lymph % (Auto) 13.1 L, [place] % (Auto) 9.8, Eos % (Auto) 0.3, Baso % (Auto) 0.2, Absolute Neuts (auto) 14.2 H, Absolute Lymphs (auto) 2.45, Nucleated RBC % 0, Differential Comment SCANNED, Diff Path Review May foll, Syphilis Total Ab Non-reactive, Blood Type A NEGATIVE, Antibody Screen NEGATIVE 08/24/23 21:05: Screen NEGATIVE, Baby's Blood Type O POSITIVE, Baby's SAROJ NEGATIVE ROS Constitutional Constitutional: Reports systems reviewed and no addt'l complaints, except as documented; Denies anorexia or headache(s) Cardiovascular Cardiovascular: Reports systems reviewed and no addt'l complaints, except as documented; Denies dizziness, dyspnea, nausea or tachypnea Respiratory/Chest Respiratory/Chest: Reports systems reviewed and no addt'l complaints, except as documented; Denies cough, dyspnea, shortness of breath at rest or tachypnea Gastrointestinal Gastrointestinal: Reports systems reviewed and no addt'l complaints, except as documented; Denies abdominal pain, constipation or nausea Genitourinary Genitourinary: Reports systems reviewed and no addt'l complaints, except as documented; Denies burning urination, difficulty urinating, dysuria, urinary frequency or urinary incontinence Musculoskeletal Musculoskeletal: Reports systems reviewed and no addt'l complaints, except as documented Integumentary Integumentary: Reports systems reviewed and no addt'l complaints, except as documented Neurologic Neurologic: Reports systems reviewed and no addt'l complaints, except as documented; Denies abnormal speech, dizziness or headache(s) Psychiatric Psychiatric: Reports systems reviewed and no addt'l complaints, except as documented Endocrine Endocrinology: Reports systems reviewed and no addt'l complaints, except as documented Hematologic/Lymphatic Hematologic/Lymphatic: Reports systems reviewed and no addt'l complaints, except as documented Physical Exam Const alert, oriented x3 and no apparent distress Neck full ROM Resp normal respiratory effort, normal air movement and no retractions Effort and Inspection: able to speak in complete sentences and symmetric chest movement GI soft to palpation Bladder / Kidney Exam: bladder normal to palpation Uterus Palpation: uterus fundus firm Extremity normal to inspection and full ROM Psych mental status grossly normal, thought process normal and cooperative Assessment & Plan (1) (spontaneous vaginal delivery): COMMENT: LC 40.6 boy: Tre PLAN: s/p PPD # 1 1. routine post delivery care 2. breast feeding- support given 3. rh positive 4. rubella immune (2) Active labor at term: COMMENT: 40.6 active labor (3) Borderline anemia: COMMENT: cbc in 4 weeks (4) Rh negative status during : QUALIFIERS: Trimester: third trimester Qualified Code(s): O26.893 - Other specified related conditions, third trimester; Z67.91 - Unspecified blood type, Rh negative COMMENT: Rhogam @ 28 wks & PRN bleeding. obtained 05/29/2023 (5) Supervision of high-risk : QUALIFIERS: Trimester: first trimester Qualified Code(s): O09.91 - Supervision of high risk , unspecified, first trimester COMMENT: PRR , JEFF 08/19/23, boy Amparo Juarez, Xavier (6) : QUALIFIERS: Weeks of gestation: 40 weeks Qualified Code(s): Z3A.40 - 40 weeks gestation of COMMENT: GBS neg. declines genetic & carrier testing, declines AFP Charges/Coding Multi Select Codes Urinary/Genital Urinary/Genital CPT Codes: No Charge
[2023-08-25 08:45] VITALS: BP 118/72; PULSE 96; RESP 16; TEMP 36.7; O2SAT 98
[2023-08-25 12:55] VITALS: BP 121/75; PULSE 101; RESP 16; TEMP 36.8; O2SAT 97
[2023-08-25 13:04] LABS: Pathologist Review Reviewed
--- NOTE | 2023-08-25 15:43 | CASEMGMT ---
Social Work Assessment Labor and Delivery Unit Patient Address:[address] [place] [address] [address] [id number] Phone number: [phone] Date of Referral: 08/24/23 Time of Referral:? 1717 Referred By: Carrie Lomax Date of Intervention: ??08/25/23 Time of Intervention:? 1414 Reason for Referral:? mental health Sw completed chart review and acknowledges social work consult due to maternal mental health. Sw presented to bedside and introduced self to mother of baby (MOB- Renetta) and father of baby (FOB- Xavier). Sw explained reason for sw involvement and completed psychosocial assessment. History obtained from: medical records, MOB and FOB Household composition: MOB states that currently residing in their family home is MOB, FOB, their two older children (Jossie, 5y/o and Amparo, 3y/o) and now baby. No concerns with current housing. SDOH was tripped, indicating that MOB did not feel safe returning home SDOH form completed with MOB in private- she indicates no issues or concerns that make her feel unsafe returning home. Patient's parent/guardian status:? ?MOB and FOB met while in high school and have been together for 8 years. No reported concerns of domestic violence or intimate partner violence. MOB and FOB observed to be very attentive to one another. This is third baby for each parent, all together. Medical History: ?JOSUE is 27 year old female who is 3, para 2- now 3 following labor and delivery of . JOSUE received routine care during with [place]. JOSUE presented to hospital in active labor and delivered baby via vaginal delivery on 08/24/23 at 41 weeks gestation. Baby boy, named Tre Rincon, was born weighing 10lb 9oz with apgars of 8 and 9a at one and five minutes of life, respectfully. Baby will be followed by [facility] for pediatrics. JOSUE is breast feeding and states that it is going well. Educational Status:? Both parents graduated from high school and MOB obtained a bachelors degree. No issues with reading, learning or comprehension. 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 FOB states that he is able to take one week off of work. Infant Supplies:??Parents have obtained all necessary baby supplies, including, car seat, safe sleep space, clothes, diapers and wipes. Childcare/Caregiver(s):? MOB will be the primary caregiver to baby along with FOB when he is not at work. Transportation:?? Both parents drive and have reliable means of transportation. No barriers. Programs/Agencies Involved: ??Parents report that they are not connected to any community resources that assist them financially. ? Children Services/Legal Issues:???No history of involvement, no issues or concerns warranting referral to be made at this time. Behavioral Health Issues: ??Mental Health History: Both parents deny mental health history. MOB states that she has never struggled with depression or anxiety. MOB states that she has never experienced baby blues or depression, and believes that she is aware of signs and symptoms to be on the lookout for. ??? Substance Use History:?MOB denies substance use prior to and during . ? Family History:??Parents deny family history of mental health diagnoses and substance use /addiction issues. ??? Drug Screens: No drug screens observed in chart review. ?? Family/Social Stressors:? Parents deny any issues, concerns or stressors at this time. Support Systems: MOB states that both sets of grandparents are extremely supportive. Depression/Shaken Baby/Safe Sleeping:? Sw educated parents on signs and symptoms of baby blues and depression and anxiety. Parents express understanding. Sw educated parents on ABCs of safe sleep and shaken baby prevention. Parents express understanding. ASSESSMENT:? MOB and baby admitted following labor and delivery of . Parents both observed to provide loving and appropriate hands on care of . JOSUE is a stay at home mom and has supports found in her parents and paternal grandparents. MOB states that FOB is really attentive to her and would be able to recognize if she were struggling with her mental health during this period. FOB states that he knows how to support MOB and would know how to comfort her if she were struggling. Parents have obtained all necessary baby supplies. Parents were open and talkative throughout completion of psychosocial assessment and were receptive to involvement and support provided from sw. PLAN:? MOB and baby to be discharged when medically ready ?No other services requested or indicated. Clement Drew, REINFORCING METAL WORKER, VOCATIONAL TECHNICAL EDUCATION DIRECTOR
[2023-08-25 16:30] VITALS: BP 127/79; PULSE 102; RESP 18; TEMP 37; O2SAT 98
[2023-08-25 20:01] VITALS: BP 123/75; PULSE 101; RESP 16; TEMP 36.9; O2SAT 97
[2023-08-26 02:10] VITALS: BP 109/77; PULSE 89; RESP 16; TEMP 36.3; O2SAT 95
--- NOTE | 2023-08-26 08:38 | PCM.PN.OB ---
Subjective Subjective Patient doing well without complaints. Tolerating PO. Ambulating and voiding without difficulty. Feeding well. Denies chest pain, shortness of breath, calf pain/swelling, fevers, chills, lightheadedness. Objective Data Objective Data Vital Signs: Vital Signs Temp Pulse Resp BP Pulse Ox O2 Del Method 97.4 F L 89 16 109/77 95 Room Air 08/26/23 02:10 08/26/23 02:10 08/26/23 02:10 08/26/23 02:10 08/26/23 02:10 08/26/23 02:10 Oxygen Delivery Method Room Air Weight: 215 lb Body Mass Index (BMI) 32.6 Intake & Output: Intake and Output for Last 24 Hours 08/24/23 08/25/23 08/26/23 23:59 23:59 23:59 Intake Total 1066 / 1066 Output Total 1000 / 1700 700 / 700 Balance 66 / -634 -700 / -700 Lab / Micro Data 08/24/23 17:15 Labs: Laboratory Results - last 24 hr 08/24/23 17:15: Diff Path Review Reviewed Physical Exam Const alert and oriented x3 HEENT normocephalic Eyes PERRL Neck full ROM Resp normal respiratory effort GI soft to palpation GI Narrative: FF below U Assessment & Plan (1) (spontaneous vaginal delivery): COMMENT: LC 40.6 boy: Tre (2) Rh negative status during : QUALIFIERS: Trimester: third trimester Qualified Code(s): O26.893 - Other specified related conditions, third trimester; Z67.91 - Unspecified blood type, Rh negative COMMENT: Rhogam @ 28 wks & PRN bleeding. obtained 05/29/2023 PLAN: Plan s/p PPD # 2 1. routine post delivery care 2. breast feeding- support given 3. rh negative 4. rubella immune
[2023-08-26 08:50] VITALS: BP 130/87; PULSE 100; RESP 18; TEMP 36.2; O2SAT 97
== END 2023-08-26 10:00 | disposition home or self-care (01) | DRG 807 ==
LOC: WPOUT 17:02 → WP 17:02
PROVIDERS: Admitting Provider Registered Nurse; Referring Provider Registered Nurse; Visit Provider Registered Nurse
DX: O70.1 Second degree perineal laceration during delivery (principal); Z37.0 Single live birth; O26.893 Other specified pregnancy related conditions, third trimester; Z3A.40 40 weeks gestation of pregnancy; Z67.91 Unspecified blood type, Rh negative
CPT/HCPCS: 59025; 59050; 85025; 85461; 86780; 86850; 86900; 86901; 90384; 99221; J7120; A4216; G0378; J2790; J2791

== ENCOUNTER → 2023-10-12 | Outpatient (CLI) | payer SELFPAY ==
[2023-10-16 12:09] LABS: HPV APTIMA, High Risk Negative (Negative)
== END | disposition home or self-care (01) ==
LOC: LABSPEC 16:42
PROVIDERS: Referring Provider Obstetrics & Gynecology; Visit Provider Obstetrics & Gynecology
DX: Z12.4 Encounter for screening for malignant neoplasm of cervix (principal)
CPT/HCPCS: 87624; 88175; G0145